=== PATIENT | male | born 1950 | race Caucasian/White ===

== ENCOUNTER → 2018-01-10 | Outpatient (CLI) | payer OTHER ==
[2018-01-10 18:59] LABS: PSA SCREENING 3.41 NG/ML (< 4.0)
[2018-01-10 19:06] LABS: APPEARANCE, URINE CLEAR (CLEAR); BACTERIA, URINE AUTO NEGATIVE (NEGATIVE); BILIRUBIN, URINE AUTO NEGATIVE (NEGATIVE); BLOOD, URINE BLOOD 3+ (NEGATIVE); COLOR, URINE YELLOW (YELLOW); GLUCOSE, URINE (UA) AUTO 1+ mg/dL (NEGATIVE); KETONE, URINE AUTO NEGATIVE (NEGATIVE); LEUKOCYTE ESTERASE, URINE AUTO TRACE (NEGATIVE); MUCUS, URINE SMALL (NEGATIVE); NITRITE, URINE AUTO NEGATIVE (NEGATIVE); PROTEIN, URINE AUTO NEGATIVE (NEGATIVE); RBC, URINE AUTO 57 /HPF (0-3); SPECIFIC GRAVITY URINE AUTO 1.019 (1.002-1.035); SQUAMOUS EPITHELIAL CELL UR AU 0 /HPF (0-6); UROBILINOGEN, URINE AUTO 0.2 mg/dL (0.0-2.0); WBC, URINE AUTO 31 /HPF (0-3)
== END ==
LOC: M SMT 14:57
DX: Z12.5 Encounter for screening for malignant neoplasm of prostate (principal); R35.0 Frequency of micturition
CPT/HCPCS: G0103

== ENCOUNTER → 2018-02-10 | Outpatient (REF) | payer OTHER | LOC: M SMT 16:56 | DX: N39.0 Urinary tract infection, site not specified (principal) | CPT/HCPCS: 87086 ==

== ENCOUNTER → 2018-02-16 | Outpatient (CLI) | payer OTHER | LOC: M RAD 15:45 | DX: N40.1 Benign prostatic hyperplasia with lower urinary tract symptoms (principal) | CPT/HCPCS: 76857 ==

== ENCOUNTER → 2018-05-02 | Outpatient (CLI) | payer OTHER ==
[~2018-05-02] MED LIST: CAND16TA2 PO; CIPR500T3 PO; FINA5TAB2 PO; FLAG500T PO; LEVO50TA5 PO; METF500T4 PO; PERC5TAB12 PO; TAMS0.4C2 PO; VYTO10TA22 PO; ZOFR4TAB16 PO
--- NOTE | 2018-05-08 14:29 | DEXA ---
AP SPINE L1 - L4 1.241 0.4 0.6 LT FEMUR TOTAL 1.095 0.7 0.6 LT NECK 1.017 -0.2 0.8 RT FEMUR TOTAL 1.090 0.7 0.6 RT NECK 1.025 -0.1 0.9 TOTAL BODY TOTAL OTHER COMMENTS: Normal bone densitometry of the spine and hips. FOLLOW-UP: Recommendation for the next bone density exam: 5 years. SALONI
== END ==
LOC: M WHC 14:52
PROVIDERS: ATTEND Nurse Practitioner
DX: M85.812 Other specified disorders of bone density and structure, left shoulder (principal)

== ENCOUNTER 2019-03-11 10:31 | Emergency (ER) | payer MEDICARE, OTHER ==
[~2019-03-11] VITALS: Ht 182.9 cm; Wt 83.6 kg
[~2019-03-11 10:31] MED LIST changes: +METF-791 PO; -METF500T4 PO
[2019-03-11] MEDS ORDERED: ASPI81TA85 PO (11:14)
[2019-03-11] MEDS ORDERED: PROTPAK PO (11:14)
[2019-03-11] MEDS ORDERED: [UNRECOGNIZED DRUG - CODE] PO (11:14)
[2019-03-11 12:51] LABS: BASO % 0.2 % (0.0-1.0); EOS % 0.1 % (0.0-3.0); HEMATOCRIT 43.7 % (42.0-52.0); HEMOGLOBIN 14.4 g/dl (13.5-17.5); LYMPH # 1.2 10^3/uL (1.5-5.0); LYMPH % 9.7 % (24.0-44.0); MEAN CORPUSCULAR VOLUME 97.1 fl (80.0-96.0); MONO # 0.8 10^3/uL (0.0-0.8); MONO % 7.1 % (0.0-5.0); NEUTROPHILS # 9.8 10^3/uL (1.5-8.5); NEUTROPHILS % 82.3 % (36.0-66.0); PLATELET COUNT, AUTOMATED 233 10^3/uL (150-450); WHITE BLOOD COUNT 11.9 10^3/uL (4.0-10.0)
[2019-03-11 13:22] LABS: ALBUMIN 3.6 GM/DL (3.2-5.2); ALT/SGPT 27 U/L (12-78); BILIRUBIN,DIRECT 0.2 MG/DL (0.0-0.2); BILIRUBIN,TOTAL 0.7 MG/DL (0.2-1.0); BLOOD UREA NITROGEN 15 MG/DL (7-18); CALCIUM LEVEL 9.2 MG/DL (8.8-10.2); CARBON DIOXIDE LEVEL 27 MEQ/L (21-32); CHLORIDE LEVEL 108 MEQ/L (98-107); CREATININE FOR GFR 1.19 MG/DL (0.70-1.30); GLOMERULAR FILTRATION RATE > 60.0 (>42); GLUCOSE, FASTING 101 MG/DL (70-100); LIPASE 65 U/L (73-393); POTASSIUM SERUM 3.6 MEQ/L (3.5-5.1); SODIUM LEVEL 141 MEQ/L (136-145); TOTAL PROTEIN 6.9 GM/DL (6.4-8.2)
[2019-03-11 13:48] VITALS: BP 149/88
--- NOTE | 2019-03-12 06:35 | REP ---
CT abdomen and pelvis without IV or oral contrast: History: Right flank pain. Urinary retention. Comparison CT study is from April 05, 2015. CT findings: Preliminary digital senior web architect radiograph demonstrates a normal bowel gas pattern. There are clips in the gallbladder fossa. A small accessory splenule is seen. No focal hepatic or splenic lesion is seen. The lung bases are clear on axial CT images. No adrenal lesion is observed. A normal retrocecal appendix is seen. Small and large intestinal bowel loops are normal in the upper abdomen. There is left colonic diverticulosis without CT evidence of diverticulitis. A Miles catheter is noted in place in the urinary bladder. Urinary bladder is empty, collapsed around a Miles catheter. The prostate gland is markedly enlarged. There is postoperative changes in the right inguinal soft tissues post herniorrhaphy. There is mild hydronephrosis and hydroureter on the left. No ureteral calculus or ureteral mass lesion is observed. No hydronephrosis is seen on the right. No intrarenal calculus is seen on either side. Impression: Marked enlargement of the prostate. Miles catheter in place. Post cholecystectomy. Mild left-sided hydronephrosis and hydroureter without observable stone or other obstructive lesion. Left colonic diverticulosis without CT evidence of diverticulitis. Normal appendix seen. Electronically Signed by Rao Borja MD 03/12/2019 08:34 A
== END 2019-03-11 13:55 | disposition home or self-care (01) ==
LOC: M ED 10:31
DX: R33.9 Retention of urine, unspecified (principal); N40.1 Benign prostatic hyperplasia with lower urinary tract symptoms; K57.90 Diverticulosis of intestine, part unspecified, without perforation or abscess without bleeding; E11.9 Type 2 diabetes mellitus without complications; I10 Essential (primary) hypertension; E03.9 Hypothyroidism, unspecified; E78.5 Hyperlipidemia, unspecified; K21.9 Gastro-esophageal reflux disease without esophagitis; Z79.899 Other long term (current) drug therapy; Z79.82 Long term (current) use of aspirin; Z79.890 Hormone replacement therapy; Z79.84 Long term (current) use of oral hypoglycemic drugs

== ENCOUNTER 2019-03-22 06:45 | Emergency (ER) | payer OTHER ==
[~2019-03-22] VITALS: Ht 175.3 cm; Wt 80.9 kg
[~2019-03-22 06:45] MED LIST changes: +ASPI81TA85 PO; +PROTPAK PO; +[UNRECOGNIZED DRUG - CODE] PO
[2019-03-22] MEDS ORDERED: CIPR500T3 (06:54)
[2019-03-22] MEDS ORDERED: LIDOCAINE 2% 5ML JELLY UROJET TOP ONE (07:00)
[2019-03-22 07:46] LABS: BILIRUBIN, URINE MANUAL NEGATIVE (NEGATIVE); GLUCOSE, URINE (UA) MANUAL 2+(250 MG/DL) mg/dL (NEGATIVE); KETONE, URINE MANUAL NEGATIVE (NEGATIVE); UROBILINOGEN, URINE MANUAL NORMAL (NORMAL)
[2019-03-22 07:58] LABS: BACTERIA, URINE SMALL AMOUNT; MUCUS, URINE SMALL AMOUNT (NEGATIVE); RED BLOOD CELL CAST, URINE 0-1 /lpf; TRANSITIONAL EPI CELLS, URINE SMALL AMOUNT /hpf
[2019-03-22 08:23] VITALS: BP 137/81
== END 2019-03-22 08:45 | disposition home or self-care (01) ==
LOC: M ED 06:45
DX: R33.9 Retention of urine, unspecified (principal); E11.9 Type 2 diabetes mellitus without complications; K21.9 Gastro-esophageal reflux disease without esophagitis; Z79.899 Other long term (current) drug therapy; Z79.890 Hormone replacement therapy; Z79.84 Long term (current) use of oral hypoglycemic drugs

== ENCOUNTER 2019-03-27 22:15 | Emergency (ER) | payer OTHER ==
[~2019-03-27] VITALS: Ht 175.3 cm; Wt 80.9 kg
[2019-03-28 00:36] VITALS: BP 138/78
[2019-03-28 00:58] LABS: APPEARANCE, URINE CLOUDY (CLEAR); BACTERIA, URINE AUTO 2+ (NEGATIVE); BILIRUBIN, URINE AUTO NEGATIVE (NEGATIVE); BLOOD, URINE BLOOD 2+ (NEGATIVE); COLOR, URINE YELLOW (YELLOW); GLUCOSE, URINE (UA) AUTO NEGATIVE (NEGATIVE); KETONE, URINE AUTO NEGATIVE (NEGATIVE); LEUKOCYTE ESTERASE, URINE AUTO 3+ (NEGATIVE); NITRITE, URINE AUTO POSITIVE (NEGATIVE); PROTEIN, URINE AUTO NEGATIVE (NEGATIVE); RBC, URINE AUTO 23 /HPF (0-3); SPECIFIC GRAVITY URINE AUTO 1.016 (1.002-1.035); SQUAMOUS EPITHELIAL CELL UR AU 0 /HPF (0-6); UROBILINOGEN, URINE AUTO 0.2 mg/dL (0.0-2.0); WBC, URINE AUTO 144 /HPF (0-3)
== END 2019-03-28 00:37 | disposition home or self-care (01) ==
LOC: M ED 22:15
DX: T83.091A Other mechanical complication of indwelling urethral catheter, initial encounter (principal); Z79.84 Long term (current) use of oral hypoglycemic drugs; Z79.899 Other long term (current) drug therapy

== ENCOUNTER → 2019-03-27 | Outpatient (CLI) | payer OTHER ==
[~2019-03-27] MED LIST changes: +CIPR500T3
== END ==
LOC: M PLALAB 15:35
PROVIDERS: ATTEND Nurse Practitioner Women's Health
DX: Z12.5 Encounter for screening for malignant neoplasm of prostate (principal)
CPT/HCPCS: 36415; G0103

== ENCOUNTER 2019-04-25 17:13 | Emergency (ER) | payer OTHER ==
[~2019-04-25] VITALS: Ht 182.9 cm; Wt 81.0 kg
[2019-04-25 18:23] VITALS: BP 146/99
[2019-05-07] MEDS ORDERED: SYNT75TA PO (08:08)
[2019-05-07] MEDS ORDERED: PANT40TA3 PO (08:08)
[2019-05-07] MEDS ORDERED: LISI20TA19 PO (08:08)
[2019-05-07] MEDS ORDERED: FLOM0.4C39 PO (08:08)
[2019-05-07] MEDS ORDERED: SIMV40TA20 PO (08:08)
[2019-05-07] MEDS ORDERED: SULF1TAB93 PO (08:58)
[2019-05-07] MEDS ORDERED: EZET1TAB4 PO (08:58)
[2019-05-07] MEDS ORDERED: CAND16TA2 PO (08:58)
== END 2019-04-25 18:40 | disposition home or self-care (01) ==
LOC: M ED 17:13
DX: Z46.6 Encounter for fitting and adjustment of urinary device (principal); T83.038A Leakage of other urinary catheter, initial encounter; T83.021A Displacement of indwelling urethral catheter, initial encounter; Y73.2 Prosthetic and other implants, materials and accessory gastroenterology and urology devices associated with adverse incidents; Z79.84 Long term (current) use of oral hypoglycemic drugs; Z79.899 Other long term (current) drug therapy

== ENCOUNTER → 2019-05-02 | Outpatient (REF) | payer OTHER ==
[~2019-05-02] MED LIST changes: +EZET1TAB4 PO; +FLOM0.4C39 PO; +LISI20TA19 PO; +PANT40TA3 PO; +SIMV40TA20 PO; +SULF1TAB93 PO; +SYNT75TA PO
== END ==
LOC: M SMT 13:12
PROVIDERS: ATTEND Urology
DX: N40.1 Benign prostatic hyperplasia with lower urinary tract symptoms (principal); N28.89 Other specified disorders of kidney and ureter

== ENCOUNTER 2019-05-06 14:35 | Emergency (ER) | payer OTHER ==
[~2019-05-06] VITALS: Ht 182.9 cm; Wt 80.0 kg
[~2019-05-06 14:35] MED LIST changes: -EZET1TAB4 PO; -FLOM0.4C39 PO; -LISI20TA19 PO; -PANT40TA3 PO; -SIMV40TA20 PO; -SULF1TAB93 PO; -SYNT75TA PO
[2019-05-06] MEDS ORDERED: LIDOCAINE 2% 5ML JELLY UROJET TOP ONE (16:00)
[2019-05-06 16:44] VITALS: BP 121/67
[2019-05-07] MEDS ORDERED: PANT40TA3 PO (08:08)
[2019-05-07] MEDS ORDERED: SIMV40TA20 PO (08:08)
[2019-05-07] MEDS ORDERED: SYNT75TA PO (08:08)
[2019-05-07] MEDS ORDERED: FLOM0.4C39 PO (08:08)
[2019-05-07] MEDS ORDERED: LISI20TA19 PO (08:08)
[2019-05-07] MEDS ORDERED: EZET1TAB4 PO (08:58)
[2019-05-07] MEDS ORDERED: SULF1TAB93 PO (08:58)
[2019-05-07] MEDS ORDERED: CAND16TA2 PO (08:58)
== END 2019-05-06 16:59 | disposition home or self-care (01) ==
LOC: M ED 14:35
DX: T83.091A Other mechanical complication of indwelling urethral catheter, initial encounter (principal); E11.9 Type 2 diabetes mellitus without complications; I10 Essential (primary) hypertension; N40.1 Benign prostatic hyperplasia with lower urinary tract symptoms; E78.5 Hyperlipidemia, unspecified; E03.9 Hypothyroidism, unspecified; Z79.84 Long term (current) use of oral hypoglycemic drugs; Z79.811 Long term (current) use of aromatase inhibitors; Z79.899 Other long term (current) drug therapy

== ENCOUNTER → 2019-05-17 | Outpatient (REF) | payer OTHER ==
[~2019-05-17] MED LIST changes: +EZET1TAB4 PO; +FLOM0.4C39 PO; +LISI20TA19 PO; +OXYB5TAB10 PO; +PANT40TA3 PO; +SIMV40TA20 PO; +SULF1TAB93 PO; +SYNT75TA PO
[2019-05-17 13:54] LABS: APPEARANCE, URINE CLOUDY (CLEAR); BACTERIA, URINE AUTO NEGATIVE (NEGATIVE); BILIRUBIN, URINE AUTO NEGATIVE (NEGATIVE); BLOOD, URINE BLOOD 3+ (NEGATIVE); COLOR, URINE YELLOW (YELLOW); GLUCOSE, URINE (UA) AUTO NEGATIVE (NEGATIVE); KETONE, URINE AUTO NEGATIVE (NEGATIVE); LEUKOCYTE ESTERASE, URINE AUTO TRACE (NEGATIVE); MUCUS, URINE SMALL (NEGATIVE); NITRITE, URINE AUTO NEGATIVE (NEGATIVE); PROTEIN, URINE AUTO 1+ mg/dL (NEGATIVE); RBC, URINE AUTO TNTC /HPF (0-3); SPECIFIC GRAVITY URINE AUTO 1.019 (1.002-1.035); SQUAMOUS EPITHELIAL CELL UR AU 0 /HPF (0-6); UROBILINOGEN, URINE AUTO 0.2 mg/dL (0.0-2.0); WBC, URINE AUTO 1 /HPF (0-3)
== END ==
LOC: M SMT 13:22
PROVIDERS: ATTEND Urology
DX: N40.1 Benign prostatic hyperplasia with lower urinary tract symptoms (principal); N39.0 Urinary tract infection, site not specified

== ENCOUNTER 2019-05-25 11:04 | Day surgery (SDC) | payer OTHER ==
[~2019-05-25] VITALS: Ht 182.9 cm; Wt 77.9 kg
[~2019-05-25 11:04] MED LIST changes: +LIDOCAINE 2% INJ 100 MG/5 ML SDV (FOR ANES.) As Ordered ONE; +MIDAZOLAM INJ 2 MG/2 ML VIAL (J2250) As Ordered ONE; +ONDANSETRON 4MG/2ML VIAL (J2405) As Ordered ONE; -OXYB5TAB10 PO; +ceFAZolin SOD 2 GM in IV 1 EA IV ONE; +dexameTHASONE 4 MG/ML 1ML VIAL (J1100) As Ordered ONE; +fentaNYL 100 MCG/2 ML INJECTION (J3010) As Ordered ONE; +propofoL 200 MG/20 ML VIAL As Ordered ONE
[2019-05-25] MEDS ORDERED: D5W/0.45% SODIUM CHLORIDE 1,000 ML IV SCH (12:30)
[2019-05-25] MEDS ORDERED: PHENYLephrine HCL 500 MCG/5 ML (100MCG/ML) SYRINGE (J2370) As Ordered ONE (14:18)
[2019-05-25] MEDS ORDERED: ePHEDrine SULFATE 25 MG/5 ML(5MG/ML) SYRINGE As Ordered ONE (14:18)
[2019-05-25] MEDS ORDERED: GLYCOPYRROLATE INJ 0.2 MG/ML 2 ML VIAL As Ordered ONE (14:18)
[2019-05-25] MEDS ORDERED: PHENYLEPHRINE INJ 10MG/ML VIAL (J2370) As Ordered ONE (14:35)
[2019-05-25] MEDS ORDERED: fentaNYL 100 MCG/2 ML INJECTION (J3010) As Ordered ONE ×2 (15:03→16:27)
[2019-05-25] MEDS ORDERED: FUROSEMIDE 100 MG/10 ML VIAL (J1940) As Ordered ONE (16:51)
[2019-05-25] MEDS ORDERED: PERCOCET 5MG/325MG TAB PO PRN (18:15)
[2019-05-25] MEDS ORDERED: fentaNYL 100 MCG/2 ML INJECTION (J3010) IV PRN (18:15)
[2019-05-25] MEDS ORDERED: ACETAMINOPHEN TAB 650MG DOSE (2X325MG) PO PRN (18:15)
[2019-05-25] MEDS ORDERED: METOCLOPRAMIDE INJ 10MG/2ML VIAL (J2765) IV PRN (18:15)
[2019-05-25] MEDS ORDERED: ONDANSETRON 4MG/2ML VIAL (J2405) IV PRN (18:15)
[2019-05-25] MEDS ORDERED: OXYB5TAB10 PO (21:45)
[2019-05-25] MEDS ORDERED: oxyBUTYnin 5 MG TAB PO ONE (22:00)
[2019-05-25 22:10] VITALS: BP 138/77
--- NOTE | 2019-05-25 23:03 | RO ---
DATE OF PROCEDURE: 05/25/2019 PREPROCEDURE DIAGNOSIS: Benign prostatic hyperplasia with urinary retention. POSTPROCEDURE DIAGNOSIS: Benign prostatic hyperplasia with urinary retention. PROCEDURE: Cystoscopy, button transurethral electrovaporization of the prostate. SURGEON: Antonio Connell MD COMPUTER NUMERICAL CONTROL OPERATOR: None. ANESTHESIA: General. OPERATIVE INDICATIONS: This is a 68-year-old male with benign prostatic hyperplasia and urinary retention. He was brought to the operating room for the above listed procedure. DESCRIPTION OF PROCEDURE: The patient was brought to the operating room and general anesthesia induced. Prophylactic antibiotics were infused. He was then placed in the dorsal lithotomy position and prepped and draped in the usual sterile fashion. At this point, a button resectoscope was inserted into the urethral meatus using a visual obturator. Of note, the patient had trilobar benign prostatic hyperplasia with a fairly prominent median lobe. At this point, I began vaporizing hyperplastic tissue on the median lobe and then circumferentially at the bladder neck. I then vaporized hyperplastic tissue on both lateral lobes. I kept doing this until there was a clear channel established. Throughout the procedure, I made sure not to vaporize close to the ureteral orifices or distal to the verumontanum. Once satisfied there was a clear channel, hemostasis was obtained using a coagulation current. Once satisfied with hemostasis, the resectoscope was removed, and an 18-[place] Miles catheter was inserted into the bladder. The balloon was filled with 15 mL of sterile water. The catheter was then connected to gravity drainage, and this marked the conclusion of the procedure. The patient was taken out of the dorsal lithotomy position, awakened from anesthesia and transported to the recovery room in stable condition. Estimated blood loss: 25 mL. Complications: None. Specimens: None. PLAN: The patient will followup in the clinic in approximately 1 week for catheter removal and a voiding trial. SALONI
== END 2019-05-25 22:30 | disposition home or self-care (01) ==
LOC: M SDC 11:04
PROVIDERS: ATTEND Urology
DX: N40.1 Benign prostatic hyperplasia with lower urinary tract symptoms (principal); I10 Essential (primary) hypertension; E11.9 Type 2 diabetes mellitus without complications; I25.10 Atherosclerotic heart disease of native coronary artery without angina pectoris; E78.00 Pure hypercholesterolemia, unspecified; K21.9 Gastro-esophageal reflux disease without esophagitis; Z79.84 Long term (current) use of oral hypoglycemic drugs; Z79.899 Other long term (current) drug therapy; R33.8 Other retention of urine
CPT/HCPCS: 52601; J0690; J1100; J1940; J2250; J2370; J2405; J3010

== ENCOUNTER → 2019-06-18 | Outpatient (REF) | payer OTHER ==
[~2019-06-18] MED LIST changes: -LIDOCAINE 2% INJ 100 MG/5 ML SDV (FOR ANES.) As Ordered ONE; -MIDAZOLAM INJ 2 MG/2 ML VIAL (J2250) As Ordered ONE; -ONDANSETRON 4MG/2ML VIAL (J2405) As Ordered ONE; +OXYB5TAB10 PO; -ceFAZolin SOD 2 GM in IV 1 EA IV ONE; -dexameTHASONE 4 MG/ML 1ML VIAL (J1100) As Ordered ONE; -fentaNYL 100 MCG/2 ML INJECTION (J3010) As Ordered ONE; -propofoL 200 MG/20 ML VIAL As Ordered ONE
[2019-06-18 14:17] LABS: APPEARANCE, URINE CLOUDY (CLEAR); BACTERIA, URINE AUTO 1+ (NEGATIVE); BILIRUBIN, URINE AUTO NEGATIVE (NEGATIVE); BLOOD, URINE BLOOD 3+ (NEGATIVE); COLOR, URINE YELLOW (YELLOW); GLUCOSE, URINE (UA) AUTO NEGATIVE (NEGATIVE); KETONE, URINE AUTO NEGATIVE (NEGATIVE); LEUKOCYTE ESTERASE, URINE AUTO 3+ (NEGATIVE); MUCUS, URINE SMALL (NEGATIVE); NITRITE, URINE AUTO NEGATIVE (NEGATIVE); PROTEIN, URINE AUTO 2+ mg/dL (NEGATIVE); RBC, URINE AUTO TNTC /HPF (0-3); SPECIFIC GRAVITY URINE AUTO 1.018 (1.002-1.035); SQUAMOUS EPITHELIAL CELL UR AU 0 /HPF (0-6); UROBILINOGEN, URINE AUTO 0.2 mg/dL (0.0-2.0); WBC, URINE AUTO 179 /HPF (0-3)
== END ==
LOC: M SMT 13:16
PROVIDERS: ATTEND Nurse Practitioner Women's Health
DX: R30.0 Dysuria (principal)

== ENCOUNTER 2020-03-24 15:12 | Emergency (ER) | payer OTHER ==
[~2020-03-24] VITALS: Ht 180.3 cm; Wt 82.2 kg
[~2020-03-24 15:12] MED LIST changes: -ASPI81TA85 PO; +ASPI81TA86 PO; -LISI20TA19 PO; +LISI20TA35 PO; -METF-791 PO; +METF-838 PO; +PANT40TA29 PO; -PANT40TA3 PO
[2020-03-24 17:14] LABS: BASO % 0.5 % (0.0-1.0); EOS # 0.1 10^3/uL (0.0-0.5); EOS % 1.6 % (0.0-3.0); HEMATOCRIT 47.8 % (42.0-52.0); HEMOGLOBIN 15.8 g/dl (13.5-17.5); LYMPH # 2.1 10^3/uL (1.5-5.0); LYMPH % 27.2 % (24.0-44.0); MEAN CORPUSCULAR HEMOGLOBIN 31.9 pg (27.0-33.0); MEAN CORPUSCULAR HGB CONC 33.1 g/dl (32.0-36.5); MEAN CORPUSCULAR VOLUME 96.4 fl (80.0-96.0); MONO # 0.8 10^3/uL (0.0-0.8); MONO % 10.2 % (0.0-5.0); NEUTROPHILS # 4.6 10^3/uL (1.5-8.5); NEUTROPHILS % 60.1 % (36.0-66.0); PLATELET COUNT, AUTOMATED 252 10^3/uL (150-450); RED BLOOD COUNT 4.96 10^6/uL (4.30-6.10); WHITE BLOOD COUNT 7.6 10^3/uL (4.0-10.0)
[2020-03-24 17:25] LABS: INR 0.96
[2020-03-24 17:45] LABS: ALBUMIN 3.8 GM/DL (3.2-5.2); ALT/SGPT 26 U/L (12-78); BILIRUBIN,TOTAL 0.4 MG/DL (0.2-1.0); BLOOD UREA NITROGEN 19 MG/DL (7-18); CALCIUM LEVEL 9.5 MG/DL (8.8-10.2); CARBON DIOXIDE LEVEL 27 MEQ/L (21-32); CHLORIDE LEVEL 107 MEQ/L (98-107); CREATININE FOR GFR 1.22 MG/DL (0.70-1.30); GLOMERULAR FILTRATION RATE > 60.0 (>42); GLUCOSE, FASTING 126 MG/DL (70-100); POTASSIUM SERUM 3.7 MEQ/L (3.5-5.1); SODIUM LEVEL 140 MEQ/L (136-145); TOTAL PROTEIN 6.9 GM/DL (6.4-8.2)
[2020-03-24 18:42] VITALS: BP 122/74
== END 2020-03-24 18:54 | disposition home or self-care (01) ==
LOC: M ED 15:12
DX: K92.2 Gastrointestinal hemorrhage, unspecified (principal); R05 Cough; E11.9 Type 2 diabetes mellitus without complications; I10 Essential (primary) hypertension; K21.9 Gastro-esophageal reflux disease without esophagitis; N40.0 Benign prostatic hyperplasia without lower urinary tract symptoms; N39.0 Urinary tract infection, site not specified; E03.9 Hypothyroidism, unspecified; R51.9 Headache, unspecified; R07.9 Chest pain, unspecified; M54.9 Dorsalgia, unspecified; K57.32 Diverticulitis of large intestine without perforation or abscess without bleeding; F43.10 Post-traumatic stress disorder, unspecified; Z79.899 Other long term (current) drug therapy

== ENCOUNTER 2022-06-09 04:22 | Inpatient (IN) | payer MEDICARE, OTHER ==
[~2022-06-09] VITALS: Ht 175.3 cm; Wt 74.2 kg
[~2022-06-09 04:22] MED LIST changes: +BACTDSTA PO; +EZET-18 PO; -EZET1TAB4 PO; +EZET1TAB96 PO; -SULF1TAB93 PO; -VYTO10TA22 PO
[2022-06-09] MEDS ORDERED: ATOR40TA75 PO (04:34)
[2022-06-09] MEDS ORDERED: ONDANSETRON 4MG 2ML VIAL IV ONE (05:10)
[2022-06-09] MEDS ORDERED: NS 1,000 ML IV ONE ×2 (05:10→09:20)
[2022-06-09 05:43] LABS: BASO # 0.1 10^3/uL (0.0-0.2); BASO % 0.5 % (0.0-1.0); EOS # 0.1 10^3/uL (0.0-0.5); EOS % 1.2 % (0.0-3.0); HEMATOCRIT 44.7 % (42.0-52.0); HEMOGLOBIN 15.2 g/dl (13.5-17.5); LYMPH # 1.7 10^3/uL (1.5-5.0); LYMPH % 15.9 % (24.0-44.0); MEAN CORPUSCULAR HEMOGLOBIN 32.8 pg (27.0-33.0); MEAN CORPUSCULAR VOLUME 96.3 fl (80.0-96.0); MONO # 0.8 10^3/uL (0.0-0.8); MONO % 7.1 % (2.0-8.0); NEUTROPHILS % 74.6 % (36.0-66.0); PLATELET COUNT, AUTOMATED 263 10^3/uL (150-450); RED BLOOD COUNT 4.64 10^6/uL (4.30-6.10); WHITE BLOOD COUNT 10.8 10^3/uL (4.0-10.0)
[2022-06-09] MEDS ORDERED: ATOR80TA59 PO (05:44)
[2022-06-09] MEDS ORDERED: SPIR-10 PO (05:44)
[2022-06-09] MEDS ORDERED: METO1TAB87 PO (05:44)
[2022-06-09] MEDS ORDERED: ASPI1CHW3 PO (05:44)
[2022-06-09] MEDS ORDERED: LEVO88TA3 PO (05:44)
[2022-06-09] MEDS ORDERED: CLOP75TA2 PO (05:44)
[2022-06-09] MEDS ORDERED: METF-877 PO (05:44)
[2022-06-09] MEDS ORDERED: FARX1TAB3 PO (05:44)
[2022-06-09 05:53] LABS: PROTHROMBIN TIME 13.4 SECONDS (12.5-14.5)
[2022-06-09 05:54] LABS: PARTIAL THROMBOPLASTIN TIME 27.8 SECONDS (24.8-34.2)
[2022-06-09 06:12] LABS: ALBUMIN 3.7 G/DL (3.2-5.2); BILIRUBIN,TOTAL 0.8 MG/DL (0.3-1.2); CALCIUM LEVEL 9.5 MG/DL (8.3-10.6); CREATININE FOR GFR 1.33 MG/DL (0.70-1.30); GLOMERULAR FILTRATION RATE 56.1 (>42); MAGNESIUM LEVEL 1.8 MG/DL (1.8-2.4); POTASSIUM SERUM 4.1 MMOL/L (3.5-5.1); THYROID STIMULATING HORMONE 5.971 uIU/ML (0.55-4.78); TOTAL PROTEIN 6.9 G/DL (5.7-8.2)
[2022-06-09 06:14] LABS: RSV AMPLIFICATION NEGATIVE (NEGATIVE)
[2022-06-09 06:18] LABS: MB/CK RELATIVE INDEX 2.2 (< OR =4)
[2022-06-09] MEDS ORDERED: ISOVUE-370 76% 100ML VIAL As Ordered ONE (07:11)
[2022-06-09 08:25] LABS: CK-MB VALUE MASS 1.7 NG/ML (<3.6); MB/CK RELATIVE INDEX 1.39 (< OR =4)
[2022-06-09] MEDS ORDERED: ASPIRIN 81MG CHEW TABLET PO SCH (09:00)
[2022-06-09] MEDS ORDERED: CLOPIDOGREL 75 MG TAB PO SCH (09:00)
[2022-06-09] MEDS ORDERED: CEFDINIR 300 MG CAP (OMNICEF) PO SCH (09:00)
[2022-06-09] MEDS ORDERED: ACETAMINOPHEN TAB 650MG DOSE (2X325MG) PO ONE (09:45)
[2022-06-09] MEDS ORDERED: CEFD300C41 PO (11:56)
[2022-06-09] MEDS ORDERED: METO1TAB32 PO (11:56)
[2022-06-09] MEDS ORDERED: FLON1SPR NARES (12:02)
[2022-06-09] MEDS ORDERED: XIID5DRO OU (12:02)
[2022-06-09] MEDS ORDERED: LISI5TAB11 PO (12:04)
[2022-06-09] MEDS ORDERED: HOME MED LIST COMPLETE! XX SCH (12:15)
[2022-06-09] MEDS ORDERED: GLUCAGON INJ 1MG VIAL SC PRN (12:40)
[2022-06-09] MEDS ORDERED: DEXTROSE 50% 50ML SYRINGE IV PRN (12:40)
[2022-06-09] MEDS ORDERED: FLUTICASONE PROP 0.05% NASAL SPRAY 16 GM (FLONASE) NARES PRN (12:40)
[2022-06-09] MEDS ORDERED: GLUCOSE 4GM CHEW TABLET PO PRN (12:40)
[2022-06-09] MEDS ORDERED: CLOPIDOGREL 75 MG TAB PO ONE (15:05)
[2022-06-09] MEDS ORDERED: ASPIRIN 81MG ENTERIC TABLET PO ONE (15:05)
[2022-06-09 16:00] VITALS: BP 176/96
[2022-06-09] MEDS: SPIRONOLACTONE 12.5MG PER 1/2 TABLET PO SCH (16:29)
[2022-06-09] MEDS: CEFDINIR 300 MG CAP (OMNICEF) PO SCH (16:29)
[2022-06-09] MEDS: PANTOPRAZOLE 40MG TAB (PROTONIX) PO SCH (16:29)
[2022-06-09] MEDS: INSULIN LISPRO (NovoLOG) PER UNIT SC SCH (16:39)
[2022-06-09] MEDS ORDERED: METOPROLOL TART 25 MG TABLET PO ONE (16:40)
[2022-06-09] MEDS: METOPROLOL SUCC *XL* 25MG TAB (TopROL *XL*) PO SCH (16:44)
[2022-06-09] MEDS ORDERED: ACETAMINOPHEN 500 MG TAB PO ONE (16:45)
[2022-06-09] MEDS: lisinopriL 5 MG TAB PO SCH (16:45)
[2022-06-09 18:07] LABS: HEMATOCRIT 41.3 % (42.0-52.0); HEMOGLOBIN 13.8 g/dl (13.5-17.5)
[2022-06-09] MEDS: DAPAGLIFLOZIN PROPANEDIOL 10MG TABLET (FARXIGA) PO SCH (18:35)
[2022-06-09] MEDS: NITROGLYCERIN 2% OINT 1 GM *U/D* PKT TOP SCH ×2 (18:36→23:02)
[2022-06-09 18:47] VITALS: BP 146/88
[2022-06-09 20:00] VITALS: BP 130/78
[2022-06-09] MEDS ORDERED: ATORVASTATIN 20 MG TAB PO SCH (21:00)
[2022-06-09] MEDS ORDERED: INSULIN LISPRO (NovoLOG) PER UNIT SC SCH (21:00)
[2022-06-10] VITALS: BP 123/75
[2022-06-10 01:02] LABS: HEMATOCRIT 39.4 % (42.0-52.0); HEMOGLOBIN 13.2 g/dl (13.5-17.5)
[2022-06-10] MEDS ORDERED: ACETAMINOPHEN TAB 650MG DOSE (2X325MG) PO PRN (04:20)
[2022-06-10 05:30] VITALS: BP 140/90
[2022-06-10] MEDS: NITROGLYCERIN 2% OINT 1 GM *U/D* PKT TOP SCH ×2 (05:38→12:00)
[2022-06-10] MEDS ORDERED: KETOROLAC 30 MG/ML 1ML VIAL IV ONE (05:55)
[2022-06-10] MEDS ORDERED: LEVOTHYROXINE 88MCG TABLET (0.088 MG) PO SCH (06:00)
[2022-06-10 06:23] LABS: HEMATOCRIT 41.4 % (42.0-52.0); HEMOGLOBIN 13.9 g/dl (13.5-17.5)
[2022-06-10 06:27] LABS: MEAN CORPUSCULAR HEMOGLOBIN 32.9 pg (27.0-33.0); MEAN CORPUSCULAR HGB CONC 33.3 g/dl (32.0-36.5); MEAN CORPUSCULAR VOLUME 98.8 fl (80.0-96.0); PLATELET COUNT, AUTOMATED 233 10^3/uL (150-450); RED BLOOD COUNT 4.25 10^6/uL (4.30-6.10); WHITE BLOOD COUNT 12.8 10^3/uL (4.0-10.0)
[2022-06-10 06:55] LABS: BLOOD UREA NITROGEN 22 MG/DL (9-23); CALCIUM LEVEL 9.2 MG/DL (8.3-10.6); CARBON DIOXIDE LEVEL 20 MMOL/L (20-31); CHLORIDE LEVEL 107 MMOL/L (98-107); CREATININE FOR GFR 1.05 MG/DL (0.70-1.30); GLOMERULAR FILTRATION RATE > 60.0 (>42); GLUCOSE, FASTING 91 MG/DL (74-106); POTASSIUM SERUM 4.1 MMOL/L (3.5-5.1); SODIUM LEVEL 137 MMOL/L (136-145)
[2022-06-10] MEDS: INSULIN LISPRO (NovoLOG) PER UNIT SC SCH ×2 (07:30→12:00)
[2022-06-10] MEDS ORDERED: CIPRODEX OTIC SUSP 7.5ML AD SCH (09:00)
[2022-06-10] MEDS ORDERED: E-Z-HD 98% w/w 340GM SUSP BTL As Ordered ONE (09:25)
[2022-06-10] MEDS ORDERED: E-Z-PAQUE 96% w/w SUSP 176GM BTL As Ordered ONE (09:25)
[2022-06-10] MEDS ORDERED: E-Z-GAS II EFFERVESCENT PACKET (SODIUM BICARB./CITRIC ACID/SIMETHICONE) As Ordered ONE (09:25)
[2022-06-10 11:00] VITALS: BP 146/83
[2022-06-10] MEDS: SPIRONOLACTONE 12.5MG PER 1/2 TABLET PO SCH (11:26)
[2022-06-10] MEDS: CEFDINIR 300 MG CAP (OMNICEF) PO SCH (11:26)
[2022-06-10] MEDS: lisinopriL 5 MG TAB PO SCH (11:28)
[2022-06-10] MEDS: PANTOPRAZOLE 40MG TAB (PROTONIX) PO SCH (11:28)
[2022-06-10] MEDS: METOPROLOL SUCC *XL* 25MG TAB (TopROL *XL*) PO SCH (11:29)
[2022-06-10] MEDS: DAPAGLIFLOZIN PROPANEDIOL 10MG TABLET (FARXIGA) PO SCH (11:30)
[2022-06-10 12:00] VITALS: BP 132/81
[2022-06-10 14:00] VITALS: BP 166/90
== END 2022-06-10 15:16 | disposition home or self-care (01) | DRG 696 ==
LOC: M ED 04:22 → M ED INP 12:36 → ENRESERV 15:13 → M MSPAV 16:17
PROVIDERS: ADMIT General Practice; ATTEND General Practice
DX: R31.0 Gross hematuria (principal); E87.20 Acidosis, unspecified; J98.11 Atelectasis; J91.8 Pleural effusion in other conditions classified elsewhere; N18.30 Chronic kidney disease, stage 3 unspecified; I12.9 Hypertensive chronic kidney disease with stage 1 through stage 4 chronic kidney disease, or unspecified chronic kidney disease; E11.22 Type 2 diabetes mellitus with diabetic chronic kidney disease; I25.2 Old myocardial infarction; N40.0 Benign prostatic hyperplasia without lower urinary tract symptoms; K44.9 Diaphragmatic hernia without obstruction or gangrene; E03.9 Hypothyroidism, unspecified; N28.1 Cyst of kidney, acquired; K57.30 Diverticulosis of large intestine without perforation or abscess without bleeding; M16.11 Unilateral primary osteoarthritis, right hip; K40.90 Unilateral inguinal hernia, without obstruction or gangrene, not specified as recurrent; Z87.891 Personal history of nicotine dependence; K21.9 Gastro-esophageal reflux disease without esophagitis; E78.5 Hyperlipidemia, unspecified; I25.10 Atherosclerotic heart disease of native coronary artery without angina pectoris; Z87.442 Personal history of urinary calculi

== ENCOUNTER 2022-06-13 21:30 | Inpatient (IN) | payer MEDICARE, OTHER ==
[~2022-06-13] VITALS: Ht 175.3 cm; Wt 75.5 kg
[~2022-06-13 21:30] MED LIST changes: +ASPI1CHW3 PO; +ATOR40TA75 PO; +ATOR80TA59 PO; +CEFD300C41 PO; +CLOP75TA2 PO; +FARX1TAB3 PO; +FLON1SPR NARES; +LEVO88TA3 PO; +LISI5TAB11 PO; +METF-877 PO; +METO1TAB32 PO; +METO1TAB87 PO; +SPIR-10 PO; +XIID5DRO OU
[2022-06-13 22:15] LABS: BASO # 0.1 10^3/uL (0.0-0.2); BASO % 0.4 % (0.0-1.0); EOS # 0.1 10^3/uL (0.0-0.5); EOS % 0.4 % (0.0-3.0); HEMATOCRIT 43.6 % (42.0-52.0); HEMOGLOBIN 14.6 g/dl (13.5-17.5); LYMPH # 1.4 10^3/uL (1.5-5.0); LYMPH % 10.6 % (24.0-44.0); MEAN CORPUSCULAR HEMOGLOBIN 32.4 pg (27.0-33.0); MEAN CORPUSCULAR HGB CONC 33.5 g/dl (32.0-36.5); MEAN CORPUSCULAR VOLUME 96.7 fl (80.0-96.0); MONO # 0.9 10^3/uL (0.0-0.8); MONO % 6.6 % (2.0-8.0); NEUTROPHILS % 81.5 % (36.0-66.0); PLATELET COUNT, AUTOMATED 334 10^3/uL (150-450); RED BLOOD COUNT 4.51 10^6/uL (4.30-6.10); WHITE BLOOD COUNT 13.5 10^3/uL (4.0-10.0)
[2022-06-13 23:26] LABS: APPEARANCE, URINE MANUAL TURBID (CLEAR); COLOR, URINE MANUAL RED (YELLOW)
[2022-06-13 23:27] LABS: BILIRUBIN, URINE MANUAL NEGATIVE (NEGATIVE); BLOOD URINE MANUAL POSITIVE (NEGATIVE); GLUCOSE, URINE (UA) MANUAL 4+(1000 MG/DL) mg/dL (NEGATIVE); KETONE, URINE MANUAL NEGATIVE (NEGATIVE); LEUKOCYTE ESTERASE, URINE MAN NEGATIVE (NEGATIVE); NITRITE, URINE MANUAL NEGATIVE (NEGATIVE); PROTEIN, URINE MANUAL 3+ mg/dL (NEGATIVE); UROBILINOGEN, URINE MANUAL NORMAL (NORMAL)
[2022-06-13 23:29] LABS: RBC, URINE TNTC /hpf (0-3)
[2022-06-13 23:30] LABS: BACTERIA, URINE NONE SEEN; HYALINE CAST, URINE NONE SEEN /lpf (0-1); SQUAMOUS EPITHELIAL CELL URINE NONE SEEN /hpf (SMALL AMT)
[2022-06-14] VITALS (8 sets, daily range): BP systolic 109–136; BP diastolic 71–83
[2022-06-14] MEDS ORDERED: UNRESOLVED CLARIFICATION ENTRY XX SCH (00:01)
[2022-06-14] MEDS ORDERED: HOME MED LIST COMPLETE! XX SCH (02:30)
[2022-06-14 02:54] LABS: RSV AMPLIFICATION NEGATIVE (NEGATIVE)
[2022-06-14] MEDS ORDERED: DEXTROSE 50% 50ML SYRINGE IV PRN (03:05)
[2022-06-14] MEDS ORDERED: ACETAMINOPHEN TAB 650MG DOSE (2X325MG) PO PRN (03:05)
[2022-06-14] MEDS ORDERED: FLUTICASONE PROP 0.05% NASAL SPRAY 16 GM (FLONASE) NARES PRN (03:05)
[2022-06-14] MEDS ORDERED: GLUCAGON INJ 1MG VIAL SC PRN (03:05)
[2022-06-14] MEDS ORDERED: GLUCOSE 4GM CHEW TABLET PO PRN (03:05)
[2022-06-14 04:22] LABS: HEMATOCRIT 41.8 % (42.0-52.0); HEMOGLOBIN 13.9 g/dl (13.5-17.5)
[2022-06-14 04:57] LABS: BLOOD UREA NITROGEN 24 MG/DL (9-23); CALCIUM LEVEL 9.9 MG/DL (8.3-10.6); CARBON DIOXIDE LEVEL 21 MMOL/L (20-31); CHLORIDE LEVEL 109 MMOL/L (98-107); CREATININE FOR GFR 1.13 MG/DL (0.70-1.30); GLOMERULAR FILTRATION RATE > 60.0 (>42); GLUCOSE, FASTING 121 MG/DL (74-106); POTASSIUM SERUM 4.1 MMOL/L (3.5-5.1); SODIUM LEVEL 142 MMOL/L (136-145)
[2022-06-14] MEDS: LEVOTHYROXINE 88MCG TABLET (0.088 MG) PO SCH (06:09)
[2022-06-14] MEDS: DOCUSATE SODIUM 100MG CAPSULE PO SCH ×2 (09:00→21:00)
[2022-06-14] MEDS: lisinopriL 5 MG TAB PO SCH (09:00)
[2022-06-14] MEDS: INSULIN LISPRO (NovoLOG) PER UNIT SC SCH ×4 (09:13→21:00)
[2022-06-14] MEDS: CEFDINIR 300 MG CAP (OMNICEF) PO SCH ×2 (09:17→21:28)
[2022-06-14] MEDS: ASPIRIN 81MG CHEW TABLET PO SCH (09:17)
[2022-06-14] MEDS: CLOPIDOGREL 75 MG TAB PO SCH (09:17)
[2022-06-14] MEDS: PANTOPRAZOLE 40MG TAB (PROTONIX) PO SCH (09:17)
[2022-06-14] MEDS: METOPROLOL SUCC *XL* 25MG TAB (TopROL *XL*) PO SCH (09:18)
[2022-06-14 09:33] LABS: HEMATOCRIT 40.7 % (42.0-52.0); HEMOGLOBIN 13.6 g/dl (13.5-17.5)
[2022-06-14 15:27] LABS: HEMATOCRIT 40.2 % (42.0-52.0); HEMOGLOBIN 13.6 g/dl (13.5-17.5)
[2022-06-14] MEDS ORDERED: LR 1,000 ML IV SCH (17:20)
[2022-06-14] MEDS ORDERED: ONDANSETRON 4MG 2ML VIAL IV PRN (17:20)
[2022-06-14] MEDS ORDERED: oxyCODONE 5MG TAB PO PRN (17:20)
[2022-06-14] MEDS ORDERED: MORPHINE 2 MG/ML 1ML VIAL IV PRN (17:20)
[2022-06-14] MEDS ORDERED: fentaNYL 100 MCG/2 ML INJECTION IV PRN (17:20)
[2022-06-14] MEDS ORDERED: propofoL 200 MG/20 ML VIAL As Ordered ONE (17:48)
[2022-06-14] MEDS ORDERED: PHENYLephrine 500MCG 5ML (100MCG/ML) SYRINGE As Ordered ONE (17:48)
[2022-06-14] MEDS ORDERED: ONDANSETRON 4MG 2ML VIAL As Ordered ONE (17:48)
[2022-06-14] MEDS ORDERED: LIDOCAINE 2% 100MG/5ML SDV (FOR ANES.) As Ordered ONE (17:48)
[2022-06-14] MEDS ORDERED: MIDAZOLAM INJ 2MG/2ML VIAL As Ordered ONE (17:48)
[2022-06-14] MEDS ORDERED: fentaNYL 100 MCG/2 ML INJECTION As Ordered ONE (17:48)
[2022-06-14] MEDS ORDERED: ePHEDrine SULFATE 25 MG/5 ML(5MG/ML) SYRINGE As Ordered ONE (17:51)
[2022-06-14 21:07] LABS: HEMATOCRIT 37.9 % (42.0-52.0); HEMOGLOBIN 12.7 g/dl (13.5-17.5)
[2022-06-14] MEDS: ATORVASTATIN 20 MG TAB PO SCH (21:28)
[2022-06-15 00:30] VITALS: BP 115/76
[2022-06-15 04:30] VITALS: BP 119/76
[2022-06-15] MEDS: LEVOTHYROXINE 88MCG TABLET (0.088 MG) PO SCH (05:59)
[2022-06-15 07:08] LABS: BASO % 0.2 % (0.0-1.0); EOS % 0.1 % (0.0-3.0); HEMATOCRIT 36.2 % (42.0-52.0); LYMPH # 1.4 10^3/uL (1.5-5.0); LYMPH % 15.9 % (24.0-44.0); MEAN CORPUSCULAR HEMOGLOBIN 32.8 pg (27.0-33.0); MEAN CORPUSCULAR HGB CONC 33.1 g/dl (32.0-36.5); MEAN CORPUSCULAR VOLUME 98.9 fl (80.0-96.0); MONO # 0.5 10^3/uL (0.0-0.8); MONO % 5.8 % (2.0-8.0); NEUTROPHILS # 6.8 10^3/uL (1.5-8.5); NEUTROPHILS % 77.5 % (36.0-66.0); PLATELET COUNT, AUTOMATED 298 10^3/uL (150-450); RED BLOOD COUNT 3.66 10^6/uL (4.30-6.10); WHITE BLOOD COUNT 8.7 10^3/uL (4.0-10.0)
[2022-06-15 07:55] LABS: BLOOD UREA NITROGEN 30 MG/DL (9-23); CALCIUM LEVEL 9.4 MG/DL (8.3-10.6); CARBON DIOXIDE LEVEL 25 MMOL/L (20-31); CHLORIDE LEVEL 106 MMOL/L (98-107); CREATININE FOR GFR 1.23 MG/DL (0.70-1.30); GLOMERULAR FILTRATION RATE > 60.0 (>42); GLUCOSE, FASTING 129 MG/DL (74-106); POTASSIUM SERUM 4.6 MMOL/L (3.5-5.1); SODIUM LEVEL 140 MMOL/L (136-145)
[2022-06-15] MEDS: lisinopriL 5 MG TAB PO SCH (09:00)
[2022-06-15] MEDS: INSULIN LISPRO (NovoLOG) PER UNIT SC SCH ×4 (09:55→21:00)
[2022-06-15] MEDS: ASPIRIN 81MG CHEW TABLET PO SCH (09:55)
[2022-06-15] MEDS: CEFDINIR 300 MG CAP (OMNICEF) PO SCH ×2 (09:55→20:54)
[2022-06-15] MEDS: PANTOPRAZOLE 40MG TAB (PROTONIX) PO SCH (09:55)
[2022-06-15] MEDS: DOCUSATE SODIUM 100MG CAPSULE PO SCH ×2 (09:55→20:54)
[2022-06-15] MEDS: CLOPIDOGREL 75 MG TAB PO SCH (09:55)
[2022-06-15] MEDS: METOPROLOL SUCC *XL* 25MG TAB (TopROL *XL*) PO SCH (09:56)
[2022-06-15 10:00] VITALS: BP 124/72
[2022-06-15 14:00] VITALS: BP 114/72
[2022-06-15 18:00] VITALS: BP 114/79
[2022-06-15] MEDS: ATORVASTATIN 20 MG TAB PO SCH (20:54)
[2022-06-15 20:58] VITALS: BP 106/56
[2022-06-16 05:40] VITALS: BP 114/68
[2022-06-16] MEDS: LEVOTHYROXINE 88MCG TABLET (0.088 MG) PO SCH (05:41)
[2022-06-16 07:34] LABS: BASO # 0.1 10^3/uL (0.0-0.2); BASO % 0.6 % (0.0-1.0); EOS # 0.2 10^3/uL (0.0-0.5); EOS % 1.9 % (0.0-3.0); HEMATOCRIT 32.7 % (42.0-52.0); LYMPH # 2.2 10^3/uL (1.5-5.0); LYMPH % 22.4 % (24.0-44.0); MEAN CORPUSCULAR HEMOGLOBIN 32.9 pg (27.0-33.0); MEAN CORPUSCULAR HGB CONC 33.6 g/dl (32.0-36.5); MEAN CORPUSCULAR VOLUME 97.9 fl (80.0-96.0); MONO # 0.7 10^3/uL (0.0-0.8); MONO % 7.6 % (2.0-8.0); NEUTROPHILS # 6.4 10^3/uL (1.5-8.5); PLATELET COUNT, AUTOMATED 265 10^3/uL (150-450); RED BLOOD COUNT 3.34 10^6/uL (4.30-6.10); WHITE BLOOD COUNT 9.6 10^3/uL (4.0-10.0)
[2022-06-16 07:54] LABS: BLOOD UREA NITROGEN 31 MG/DL (9-23); CALCIUM LEVEL 9.3 MG/DL (8.3-10.6); CARBON DIOXIDE LEVEL 26 MMOL/L (20-31); CHLORIDE LEVEL 107 MMOL/L (98-107); CREATININE FOR GFR 1.07 MG/DL (0.70-1.30); GLOMERULAR FILTRATION RATE > 60.0 (>42); GLUCOSE, FASTING 124 MG/DL (74-106); POTASSIUM SERUM 3.8 MMOL/L (3.5-5.1); SODIUM LEVEL 141 MMOL/L (136-145)
[2022-06-16] MEDS: ASPIRIN 81MG CHEW TABLET PO SCH (08:59)
[2022-06-16] MEDS: PANTOPRAZOLE 40MG TAB (PROTONIX) PO SCH (08:59)
[2022-06-16] MEDS: DOCUSATE SODIUM 100MG CAPSULE PO SCH ×2 (08:59→20:11)
[2022-06-16] MEDS: CLOPIDOGREL 75 MG TAB PO SCH (08:59)
[2022-06-16] MEDS: CEFDINIR 300 MG CAP (OMNICEF) PO SCH ×2 (08:59→20:11)
[2022-06-16] MEDS: lisinopriL 5 MG TAB PO SCH (09:00)
[2022-06-16] MEDS: INSULIN LISPRO (NovoLOG) PER UNIT SC SCH ×4 (09:00→21:00)
[2022-06-16] MEDS: METOPROLOL SUCC *XL* 25MG TAB (TopROL *XL*) PO SCH (09:03)
[2022-06-16 14:00] VITALS: BP 105/71
[2022-06-16] MEDS: ATORVASTATIN 20 MG TAB PO SCH (20:11)
[2022-06-16 21:35] VITALS: BP 102/61
[2022-06-17] MEDS: LEVOTHYROXINE 88MCG TABLET (0.088 MG) PO SCH (05:28)
[2022-06-17 06:00] VITALS: BP 102/62
[2022-06-17 08:10] LABS: BASO # 0.1 10^3/uL (0.0-0.2); BASO % 0.5 % (0.0-1.0); EOS # 0.2 10^3/uL (0.0-0.5); EOS % 1.8 % (0.0-3.0); HEMATOCRIT 30.9 % (42.0-52.0); HEMOGLOBIN 10.5 g/dl (13.5-17.5); LYMPH # 2.1 10^3/uL (1.5-5.0); LYMPH % 21.5 % (24.0-44.0); MEAN CORPUSCULAR HEMOGLOBIN 33.1 pg (27.0-33.0); MEAN CORPUSCULAR VOLUME 97.5 fl (80.0-96.0); MONO # 0.8 10^3/uL (0.0-0.8); MONO % 8.4 % (2.0-8.0); NEUTROPHILS # 6.6 10^3/uL (1.5-8.5); NEUTROPHILS % 67.1 % (36.0-66.0); PLATELET COUNT, AUTOMATED 265 10^3/uL (150-450); RED BLOOD COUNT 3.17 10^6/uL (4.30-6.10); WHITE BLOOD COUNT 9.8 10^3/uL (4.0-10.0)
[2022-06-17] MEDS: lisinopriL 5 MG TAB PO SCH (08:11)
[2022-06-17] MEDS: PANTOPRAZOLE 40MG TAB (PROTONIX) PO SCH (08:11)
[2022-06-17] MEDS: ASPIRIN 81MG CHEW TABLET PO SCH (08:11)
[2022-06-17] MEDS: CEFDINIR 300 MG CAP (OMNICEF) PO SCH (08:11)
[2022-06-17] MEDS: DOCUSATE SODIUM 100MG CAPSULE PO SCH (08:11)
[2022-06-17 08:12] VITALS: BP 111/62
[2022-06-17] MEDS: CLOPIDOGREL 75 MG TAB PO SCH (08:12)
[2022-06-17] MEDS: METOPROLOL SUCC *XL* 25MG TAB (TopROL *XL*) PO SCH (08:12)
[2022-06-17] MEDS: INSULIN LISPRO (NovoLOG) PER UNIT SC SCH ×2 (08:13→12:33)
[2022-06-17] MEDS ORDERED: SENOKOT S TAB PO SCH (09:00)
[2022-06-17] MEDS ORDERED: MIRALAX *UNIT DOSE* 17GM PACKET PO SCH (09:00)
== END 2022-06-17 13:45 | disposition home or self-care (01) | DRG 813 ==
LOC: M ED 21:30 → EDBD 21:30 → M ED INP 06-14 03:02 → M MSPAV 06-14 08:53
PROVIDERS: ADMIT Family Medicine; ATTEND Internal Medicine
PROC: 0VB08ZX Excision of Prostate, Via Natural or Artificial Opening Endoscopic, Diagnostic (ICD-10-PCS; 2022-06-14)
PROC: 0TCB8ZZ Extirpation of Matter from Bladder, Via Natural or Artificial Opening Endoscopic (ICD-10-PCS; principal; 2022-06-14 17:00)
DX: D68.32 Hemorrhagic disorder due to extrinsic circulating anticoagulants (principal); N39.0 Urinary tract infection, site not specified; D62 Acute posthemorrhagic anemia; R31.0 Gross hematuria; R30.0 Dysuria; I10 Essential (primary) hypertension; K21.9 Gastro-esophageal reflux disease without esophagitis; E03.9 Hypothyroidism, unspecified; I25.10 Atherosclerotic heart disease of native coronary artery without angina pectoris; E78.5 Hyperlipidemia, unspecified; Z95.1 Presence of aortocoronary bypass graft; N40.0 Benign prostatic hyperplasia without lower urinary tract symptoms; E11.9 Type 2 diabetes mellitus without complications; Z79.899 Other long term (current) drug therapy; Z79.82 Long term (current) use of aspirin; Z87.891 Personal history of nicotine dependence; Z95.2 Presence of prosthetic heart valve

== ENCOUNTER 2022-07-14 16:52 | Inpatient (IN) | payer OTHER, MEDICARE ==
[~2022-07-14] VITALS: Ht 175.3 cm; Wt 75.9 kg
[2022-07-14] MEDS ORDERED: LIDOCAINE 2% 5ML JELLY UROJET TOP ONE (17:30)
[2022-07-14 19:07] LABS: BASO % 0.2 % (0.0-1.0); EOS % 0.4 % (0.0-3.0); HEMATOCRIT 30.5 % (42.0-52.0); HEMOGLOBIN 9.7 g/dl (13.5-17.5); LYMPH # 1.5 10^3/uL (1.5-5.0); LYMPH % 16.7 % (24.0-44.0); MEAN CORPUSCULAR HEMOGLOBIN 31.2 pg (27.0-33.0); MEAN CORPUSCULAR HGB CONC 31.8 g/dl (32.0-36.5); MEAN CORPUSCULAR VOLUME 98.1 fl (80.0-96.0); MONO # 0.7 10^3/uL (0.0-0.8); MONO % 7.1 % (2.0-8.0); NEUTROPHILS # 6.8 10^3/uL (1.5-8.5); NEUTROPHILS % 75.1 % (36.0-66.0); PLATELET COUNT, AUTOMATED 322 10^3/uL (150-450); RED BLOOD COUNT 3.11 10^6/uL (4.30-6.10); WHITE BLOOD COUNT 9.1 10^3/uL (4.0-10.0)
[2022-07-14 19:19] LABS: INR 1.1; PROTHROMBIN TIME 14.4 SECONDS (12.5-14.5)
[2022-07-14 19:30] LABS: BLOOD UREA NITROGEN 20 MG/DL (9-23); CALCIUM LEVEL 8.9 MG/DL (8.3-10.6); CARBON DIOXIDE LEVEL 24 MMOL/L (20-31); CHLORIDE LEVEL 106 MMOL/L (98-107); CREATININE FOR GFR 1.12 MG/DL (0.70-1.30); GLOMERULAR FILTRATION RATE > 60.0 (>42); GLUCOSE, FASTING 107 MG/DL (74-106); POTASSIUM SERUM 3.9 MMOL/L (3.5-5.1); SODIUM LEVEL 140 MMOL/L (136-145)
[2022-07-14] MEDS: ATORVASTATIN 20 MG TAB PO SCH (21:00)
[2022-07-14] MEDS: TAMSULOSIN 0.4 MG CAP PO SCH (21:00)
[2022-07-14] MEDS ORDERED: NS 500 ML IV ONE (21:25)
[2022-07-14] MEDS ORDERED: DEXTROSE 50% 50ML SYRINGE IV PRN (21:30)
[2022-07-14] MEDS ORDERED: GLUCAGON INJ 1MG VIAL SC PRN (21:30)
[2022-07-14] MEDS ORDERED: GLUCOSE 4GM CHEW TABLET PO PRN (21:30)
[2022-07-14] MEDS: NS 1,000 ML IV SCH (22:35)
[2022-07-14] MEDS ORDERED: ACET-907 PO (22:42)
[2022-07-14] MEDS ORDERED: HOME MED LIST COMPLETE! XX SCH (22:45)
[2022-07-15 00:44] LABS: INR 1.13; PROTHROMBIN TIME 14.7 SECONDS (12.5-14.5)
[2022-07-15 00:45] LABS: PARTIAL THROMBOPLASTIN TIME 27.6 SECONDS (24.8-34.2)
[2022-07-15 00:50] LABS: HEMATOCRIT 26.1 % (42.0-52.0); HEMOGLOBIN 8.3 g/dl (13.5-17.5)
[2022-07-15] MEDS: INSULIN LISPRO (NovoLOG) PER UNIT SC SCH ×5 (01:49→20:55)
[2022-07-15 05:37] VITALS: BP 119/69
[2022-07-15] MEDS: LEVOTHYROXINE 88MCG TABLET (0.088 MG) PO SCH (06:02)
[2022-07-15 06:16] LABS: HEMATOCRIT 25.8 % (42.0-52.0); HEMOGLOBIN 8.6 g/dl (13.5-17.5); MEAN CORPUSCULAR HEMOGLOBIN 32.2 pg (27.0-33.0); MEAN CORPUSCULAR HGB CONC 33.3 g/dl (32.0-36.5); MEAN CORPUSCULAR VOLUME 96.6 fl (80.0-96.0); PLATELET COUNT, AUTOMATED 272 10^3/uL (150-450); RED BLOOD COUNT 2.67 10^6/uL (4.30-6.10); WHITE BLOOD COUNT 9.9 10^3/uL (4.0-10.0)
[2022-07-15 07:58] LABS: ALBUMIN 3.1 G/DL (3.2-5.2); ALKALINE PHOSPHATASE 57 U/L (46-116); ALT/SGPT 14 U/L (7.0-40); AST/SGOT 15 U/L (<34); BILIRUBIN,TOTAL 0.7 MG/DL (0.3-1.2); BLOOD UREA NITROGEN 15 MG/DL (9-23); CALCIUM LEVEL 8.6 MG/DL (8.3-10.6); CARBON DIOXIDE LEVEL 24 MMOL/L (20-31); CHLORIDE LEVEL 108 MMOL/L (98-107); CREATININE FOR GFR 0.86 MG/DL (0.70-1.30); GLOMERULAR FILTRATION RATE > 60.0 (>42); GLUCOSE, FASTING 89 MG/DL (74-106); POTASSIUM SERUM 3.5 MMOL/L (3.5-5.1); SODIUM LEVEL 141 MMOL/L (136-145); TOTAL PROTEIN 5.4 G/DL (5.7-8.2)
[2022-07-15] MEDS: ASPIRIN 81MG CHEW TABLET PO SCH (08:23)
[2022-07-15 08:24] VITALS: BP 103/62
[2022-07-15] MEDS: PANTOPRAZOLE 40MG VIAL IV SCH (08:26)
[2022-07-15] MEDS ORDERED: METOPROLOL SUCC *XL* 25MG TAB (TopROL *XL*) PO SCH (09:00)
[2022-07-15] MEDS ORDERED: CLOPIDOGREL 75 MG TAB PO SCH (09:00)
[2022-07-15 12:42] VITALS: BP 115/63
[2022-07-15] MEDS: NS 1,000 ML IV SCH ×2 (13:00→22:55)
[2022-07-15 17:13] LABS: HEMATOCRIT 25.7 % (42.0-52.0); HEMOGLOBIN 8.5 g/dl (13.5-17.5); MEAN CORPUSCULAR HGB CONC 33.1 g/dl (32.0-36.5); MEAN CORPUSCULAR VOLUME 96.6 fl (80.0-96.0); PLATELET COUNT, AUTOMATED 256 10^3/uL (150-450); RED BLOOD COUNT 2.66 10^6/uL (4.30-6.10); WHITE BLOOD COUNT 11.2 10^3/uL (4.0-10.0)
[2022-07-15 17:31] LABS: PERCENT SATURATION 3.2 % (19.7-50.0)
[2022-07-15 17:34] LABS: FERRITIN 11.1 NG/ML (10.5-307.3)
[2022-07-15 19:48] VITALS: BP 120/65
[2022-07-15] MEDS: TAMSULOSIN 0.4 MG CAP PO SCH (20:53)
[2022-07-15] MEDS: ATORVASTATIN 20 MG TAB PO SCH (20:53)
[2022-07-15 23:56] VITALS: BP 110/64
[2022-07-16] VITALS (15 sets, daily range): BP systolic 109–143; BP diastolic 62–76
[2022-07-16 05:51] LABS: HEMOGLOBIN 7.9 g/dl (13.5-17.5); MEAN CORPUSCULAR HEMOGLOBIN 30.7 pg (27.0-33.0); MEAN CORPUSCULAR HGB CONC 31.6 g/dl (32.0-36.5); MEAN CORPUSCULAR VOLUME 97.3 fl (80.0-96.0); PLATELET COUNT, AUTOMATED 238 10^3/uL (150-450); RED BLOOD COUNT 2.57 10^6/uL (4.30-6.10); WHITE BLOOD COUNT 10.3 10^3/uL (4.0-10.0)
[2022-07-16 06:25] LABS: ALBUMIN 2.8 G/DL (3.2-5.2); ALKALINE PHOSPHATASE 52 U/L (46-116); ALT/SGPT 11 U/L (7.0-40); AST/SGOT 12 U/L (<34); BILIRUBIN,TOTAL 0.6 MG/DL (0.3-1.2); BLOOD UREA NITROGEN 9 MG/DL (9-23); CALCIUM LEVEL 8.3 MG/DL (8.3-10.6); CARBON DIOXIDE LEVEL 22 MMOL/L (20-31); CHLORIDE LEVEL 109 MMOL/L (98-107); CREATININE FOR GFR 0.79 MG/DL (0.70-1.30); GLOMERULAR FILTRATION RATE > 60.0 (>42); GLUCOSE, FASTING 128 MG/DL (74-106); POTASSIUM SERUM 3.6 MMOL/L (3.5-5.1); SODIUM LEVEL 140 MMOL/L (136-145)
[2022-07-16] MEDS: LEVOTHYROXINE 88MCG TABLET (0.088 MG) PO SCH (07:53)
[2022-07-16] MEDS: PANTOPRAZOLE 40MG VIAL IV SCH (07:53)
[2022-07-16] MEDS: INSULIN LISPRO (NovoLOG) PER UNIT SC SCH ×4 (07:53→20:06)
[2022-07-16] MEDS: NS 1,000 ML IV SCH ×2 (07:54→23:51)
[2022-07-16] MEDS: ASPIRIN 81MG CHEW TABLET PO SCH (09:00)
[2022-07-16] MEDS ORDERED: LIDOCAINE 2% 100MG/5ML SDV (FOR ANES.) As Ordered ONE (15:53)
[2022-07-16] MEDS ORDERED: ONDANSETRON 4MG 2ML VIAL As Ordered ONE (15:53)
[2022-07-16] MEDS ORDERED: MIDAZOLAM INJ 2MG/2ML VIAL As Ordered ONE (15:53)
[2022-07-16] MEDS ORDERED: propofoL 200 MG/20 ML VIAL As Ordered ONE (15:53)
[2022-07-16] MEDS ORDERED: fentaNYL 100 MCG/2 ML INJECTION As Ordered ONE (15:54)
[2022-07-16] MEDS ORDERED: oxyCODONE 5MG TAB PO PRN (17:50)
[2022-07-16] MEDS ORDERED: LR 1,000 ML IV SCH (17:50)
[2022-07-16] MEDS ORDERED: ONDANSETRON 4MG 2ML VIAL IV PRN (17:50)
[2022-07-16] MEDS ORDERED: fentaNYL 100 MCG/2 ML INJECTION IV PRN (17:50)
[2022-07-16] MEDS: ATORVASTATIN 20 MG TAB PO SCH (20:24)
[2022-07-16] MEDS: TAMSULOSIN 0.4 MG CAP PO SCH (20:24)
[2022-07-17] VITALS (7 sets, daily range): BP systolic 101–117; BP diastolic 56–70
[2022-07-17 02:32] LABS: HEMATOCRIT 29.9 % (42.0-52.0); MEAN CORPUSCULAR HEMOGLOBIN 30.5 pg (27.0-33.0); MEAN CORPUSCULAR HGB CONC 33.1 g/dl (32.0-36.5); PLATELET COUNT, AUTOMATED 249 10^3/uL (150-450); RED BLOOD COUNT 3.25 10^6/uL (4.30-6.10)
[2022-07-17 02:35] LABS: HEMOGLOBIN 9.9 g/dl (13.5-17.5)
[2022-07-17] MEDS: LEVOTHYROXINE 88MCG TABLET (0.088 MG) PO SCH (05:40)
[2022-07-17 06:13] LABS: HEMOGLOBIN 9.9 g/dl (13.5-17.5); MEAN CORPUSCULAR HEMOGLOBIN 30.3 pg (27.0-33.0); MEAN CORPUSCULAR VOLUME 91.7 fl (80.0-96.0); PLATELET COUNT, AUTOMATED 242 10^3/uL (150-450); RED BLOOD COUNT 3.27 10^6/uL (4.30-6.10); WHITE BLOOD COUNT 6.5 10^3/uL (4.0-10.0)
[2022-07-17 06:45] LABS: ALBUMIN 2.8 G/DL (3.2-5.2); ALKALINE PHOSPHATASE 54 U/L (46-116); ALT/SGPT 12 U/L (7.0-40); AST/SGOT 11 U/L (<34); BILIRUBIN,TOTAL 0.9 MG/DL (0.3-1.2); BLOOD UREA NITROGEN 13 MG/DL (9-23); CALCIUM LEVEL 8.5 MG/DL (8.3-10.6); CARBON DIOXIDE LEVEL 21 MMOL/L (20-31); CHLORIDE LEVEL 110 MMOL/L (98-107); GLOMERULAR FILTRATION RATE > 60.0 (>42); GLUCOSE, FASTING 168 MG/DL (74-106); SODIUM LEVEL 139 MMOL/L (136-145); TOTAL PROTEIN 5.3 G/DL (5.7-8.2)
[2022-07-17] MEDS: INSULIN LISPRO (NovoLOG) PER UNIT SC SCH ×5 (07:30→20:54)
[2022-07-17] MEDS: ASPIRIN 81MG CHEW TABLET PO SCH (07:57)
[2022-07-17] MEDS: NS 1,000 ML IV SCH (07:57)
[2022-07-17] MEDS: PANTOPRAZOLE 40MG VIAL IV SCH (07:57)
[2022-07-17] MEDS: TAMSULOSIN 0.4 MG CAP PO SCH (20:54)
[2022-07-17] MEDS: ATORVASTATIN 20 MG TAB PO SCH (20:54)
[2022-07-18] VITALS (9 sets, daily range): BP systolic 100–123; BP diastolic 57–74
[2022-07-18] MEDS: LEVOTHYROXINE 88MCG TABLET (0.088 MG) PO SCH (05:56)
[2022-07-18 07:12] LABS: HEMATOCRIT 28.2 % (42.0-52.0); HEMOGLOBIN 9.1 g/dl (13.5-17.5); MEAN CORPUSCULAR HGB CONC 32.3 g/dl (32.0-36.5); MEAN CORPUSCULAR VOLUME 93.1 fl (80.0-96.0); PLATELET COUNT, AUTOMATED 245 10^3/uL (150-450); RED BLOOD COUNT 3.03 10^6/uL (4.30-6.10); WHITE BLOOD COUNT 8.5 10^3/uL (4.0-10.0)
[2022-07-18 07:38] LABS: ALBUMIN 2.7 G/DL (3.2-5.2); ALKALINE PHOSPHATASE 53 U/L (46-116); ALT/SGPT 13 U/L (7.0-40); AST/SGOT 13 U/L (<34); BILIRUBIN,TOTAL 0.5 MG/DL (0.3-1.2); BLOOD UREA NITROGEN 17 MG/DL (9-23); CALCIUM LEVEL 8.3 MG/DL (8.3-10.6); CARBON DIOXIDE LEVEL 23 MMOL/L (20-31); CHLORIDE LEVEL 111 MMOL/L (98-107); CREATININE FOR GFR 0.85 MG/DL (0.70-1.30); GLOMERULAR FILTRATION RATE > 60.0 (>42); GLUCOSE, FASTING 128 MG/DL (74-106); POTASSIUM SERUM 3.5 MMOL/L (3.5-5.1); SODIUM LEVEL 142 MMOL/L (136-145); TOTAL PROTEIN 5.2 G/DL (5.7-8.2)
[2022-07-18] MEDS: PANTOPRAZOLE 40MG VIAL IV SCH (07:57)
[2022-07-18] MEDS: ASPIRIN 81MG CHEW TABLET PO SCH (07:58)
[2022-07-18] MEDS: INSULIN LISPRO (NovoLOG) PER UNIT SC SCH ×4 (07:58→21:00)
[2022-07-18] MEDS ORDERED: MIRALAX *UNIT DOSE* 17GM PACKET PO PRN (17:30)
[2022-07-18 17:41] LABS: HEMATOCRIT 31.4 % (42.0-52.0); HEMOGLOBIN 10.5 g/dl (13.5-17.5); MEAN CORPUSCULAR HEMOGLOBIN 30.9 pg (27.0-33.0); MEAN CORPUSCULAR HGB CONC 33.4 g/dl (32.0-36.5); MEAN CORPUSCULAR VOLUME 92.4 fl (80.0-96.0); PLATELET COUNT, AUTOMATED 248 10^3/uL (150-450); WHITE BLOOD COUNT 8.5 10^3/uL (4.0-10.0)
[2022-07-18] MEDS: FERROUS SULFATE 325MG TAB PO SCH (21:54)
[2022-07-18] MEDS: DOCUSATE SODIUM 100MG CAPSULE PO SCH (21:54)
[2022-07-18] MEDS: TAMSULOSIN 0.4 MG CAP PO SCH (21:54)
[2022-07-18] MEDS: ATORVASTATIN 20 MG TAB PO SCH (21:54)
[2022-07-18] MEDS: SENNA 8.6 MG TAB (SENOKOT) PO SCH (21:54)
[2022-07-19 06:00] VITALS: BP 130/75
[2022-07-19] MEDS: LEVOTHYROXINE 88MCG TABLET (0.088 MG) PO SCH (06:00)
[2022-07-19 06:05] LABS: HEMATOCRIT 30.6 % (42.0-52.0); HEMOGLOBIN 10.2 g/dl (13.5-17.5); MEAN CORPUSCULAR HEMOGLOBIN 30.2 pg (27.0-33.0); MEAN CORPUSCULAR HGB CONC 33.3 g/dl (32.0-36.5); MEAN CORPUSCULAR VOLUME 90.5 fl (80.0-96.0); PLATELET COUNT, AUTOMATED 250 10^3/uL (150-450); RED BLOOD COUNT 3.38 10^6/uL (4.30-6.10); WHITE BLOOD COUNT 8.2 10^3/uL (4.0-10.0)
[2022-07-19 06:37] LABS: ALBUMIN 2.6 G/DL (3.2-5.2); ALKALINE PHOSPHATASE 57 U/L (46-116); ALT/SGPT 13 U/L (7.0-40); AST/SGOT 13 U/L (<34); BILIRUBIN,TOTAL 0.6 MG/DL (0.3-1.2); BLOOD UREA NITROGEN 14 MG/DL (9-23); CALCIUM LEVEL 8.4 MG/DL (8.3-10.6); CARBON DIOXIDE LEVEL 23 MMOL/L (20-31); CHLORIDE LEVEL 109 MMOL/L (98-107); CREATININE FOR GFR 0.82 MG/DL (0.70-1.30); GLOMERULAR FILTRATION RATE > 60.0 (>42); GLUCOSE, FASTING 127 MG/DL (74-106); POTASSIUM SERUM 3.6 MMOL/L (3.5-5.1); SODIUM LEVEL 140 MMOL/L (136-145)
[2022-07-19] MEDS: INSULIN LISPRO (NovoLOG) PER UNIT SC SCH ×4 (08:22→21:00)
[2022-07-19] MEDS: ASPIRIN 81MG CHEW TABLET PO SCH (08:23)
[2022-07-19] MEDS: PANTOPRAZOLE 40MG VIAL IV SCH (08:23)
[2022-07-19] MEDS: FERROUS SULFATE 325MG TAB PO SCH ×2 (08:23→20:42)
[2022-07-19] MEDS: DOCUSATE SODIUM 100MG CAPSULE PO SCH ×2 (08:23→20:42)
[2022-07-19] MEDS: CLOPIDOGREL 75 MG TAB PO SCH (08:24)
[2022-07-19 14:00] VITALS: BP 131/75
[2022-07-19] MEDS: ATORVASTATIN 20 MG TAB PO SCH (20:41)
[2022-07-19] MEDS: TAMSULOSIN 0.4 MG CAP PO SCH (20:41)
[2022-07-19] MEDS: SENNA 8.6 MG TAB (SENOKOT) PO SCH (20:42)
[2022-07-19 22:23] VITALS: BP 138/82
[2022-07-20 05:26] VITALS: BP 121/66
[2022-07-20] MEDS: LEVOTHYROXINE 88MCG TABLET (0.088 MG) PO SCH (05:29)
[2022-07-20 06:06] LABS: HEMATOCRIT 31.8 % (42.0-52.0); HEMOGLOBIN 10.6 g/dl (13.5-17.5); MEAN CORPUSCULAR HGB CONC 33.3 g/dl (32.0-36.5); MEAN CORPUSCULAR VOLUME 90.1 fl (80.0-96.0); PLATELET COUNT, AUTOMATED 255 10^3/uL (150-450); RED BLOOD COUNT 3.53 10^6/uL (4.30-6.10); WHITE BLOOD COUNT 6.7 10^3/uL (4.0-10.0)
[2022-07-20 06:43] LABS: ALBUMIN 2.6 G/DL (3.2-5.2); ALKALINE PHOSPHATASE 59 U/L (46-116); ALT/SGPT 14 U/L (7.0-40); AST/SGOT 14 U/L (<34); BILIRUBIN,TOTAL 0.6 MG/DL (0.3-1.2); BLOOD UREA NITROGEN 14 MG/DL (9-23); CALCIUM LEVEL 8.3 MG/DL (8.3-10.6); CARBON DIOXIDE LEVEL 24 MMOL/L (20-31); CHLORIDE LEVEL 109 MMOL/L (98-107); CREATININE FOR GFR 0.79 MG/DL (0.70-1.30); GLOMERULAR FILTRATION RATE > 60.0 (>42); GLUCOSE, FASTING 128 MG/DL (74-106); POTASSIUM SERUM 3.6 MMOL/L (3.5-5.1); SODIUM LEVEL 140 MMOL/L (136-145)
[2022-07-20] MEDS: FERROUS SULFATE 325MG TAB PO SCH (09:17)
[2022-07-20] MEDS: PANTOPRAZOLE 40MG VIAL IV SCH (09:18)
[2022-07-20] MEDS: ASPIRIN 81MG CHEW TABLET PO SCH (09:18)
[2022-07-20] MEDS: CLOPIDOGREL 75 MG TAB PO SCH (09:18)
[2022-07-20] MEDS: DOCUSATE SODIUM 100MG CAPSULE PO SCH (09:18)
[2022-07-20] MEDS: INSULIN LISPRO (NovoLOG) PER UNIT SC SCH (09:19)
[2022-07-20] MEDS ORDERED: ASCO500T PO (10:36)
[2022-07-20] MEDS ORDERED: FERR1TAB8 PO (10:36)
[2022-07-20] MEDS ORDERED: FLOM0.4C39 PO (10:36)
[2022-07-20] MEDS ORDERED: MIRA1POW3 PO (10:36)
== END 2022-07-20 12:03 | disposition home or self-care (01) | DRG 713 ==
LOC: M ED 16:52 → M ED INP 21:32 → M PCU 07-15 03:00 → M MSPAV 07-17 16:33
PROVIDERS: ADMIT Internal Medicine; ATTEND Student in an Organized Health Care Education/Training Program
PROC: 0TCB7ZZ Extirpation of Matter from Bladder, Via Natural or Artificial Opening (ICD-10-PCS; 2022-07-16)
PROC: 30233N1 Transfusion of Nonautologous Red Blood Cells into Peripheral Vein, Percutaneous Approach (ICD-10-PCS; 2022-07-16)
PROC: 0V507ZZ Destruction of Prostate, Via Natural or Artificial Opening (ICD-10-PCS; principal; 2022-07-16 17:00)
DX: N42.1 Congestion and hemorrhage of prostate (principal); D68.32 Hemorrhagic disorder due to extrinsic circulating anticoagulants; D62 Acute posthemorrhagic anemia; E78.5 Hyperlipidemia, unspecified; E03.9 Hypothyroidism, unspecified; I10 Essential (primary) hypertension; E11.9 Type 2 diabetes mellitus without complications; I25.10 Atherosclerotic heart disease of native coronary artery without angina pectoris; K21.9 Gastro-esophageal reflux disease without esophagitis; R33.9 Retention of urine, unspecified; J45.909 Unspecified asthma, uncomplicated; E78.00 Pure hypercholesterolemia, unspecified; Z79.899 Other long term (current) drug therapy; Z79.82 Long term (current) use of aspirin; I25.2 Old myocardial infarction

== ENCOUNTER 2022-07-24 07:53 | Inpatient (IN) | payer MEDICARE, OTHER ==
[~2022-07-24] VITALS: Ht 175.3 cm; Wt 70.6 kg
[2022-07-24] VITALS (9 sets, daily range): BP systolic 82–174; BP diastolic 54–109; O2SAT 94–98
[2022-07-24] MEDS: LEVOTHYROXINE 88MCG TABLET (0.088 MG) PO SCH (06:00)
[~2022-07-24 07:53] MED LIST changes: +ACET-907 PO; +ASCO500T PO; +FERR1TAB8 PO; +MIRA1POW3 PO
[2022-07-24] MEDS ORDERED: LIDOCAINE 2% 5ML JELLY UROJET TOP ONE ×2 (08:50→15:05)
[2022-07-24] MEDS ORDERED: lisinopriL 5 MG TAB PO SCH (09:00)
[2022-07-24] MEDS ORDERED: METOPROLOL SUCC *XL* 25MG TAB (TopROL *XL*) PO SCH (09:00)
[2022-07-24] MEDS ORDERED: SPIRONOLACTONE 12.5MG PER 1/2 TABLET PO SCH (09:00)
[2022-07-24 09:08] LABS: HEMATOCRIT 37.1 % (42.0-52.0); HEMOGLOBIN 11.8 g/dl (13.5-17.5); MEAN CORPUSCULAR HEMOGLOBIN 29.6 pg (27.0-33.0); MEAN CORPUSCULAR HGB CONC 31.8 g/dl (32.0-36.5); MEAN CORPUSCULAR VOLUME 93.2 fl (80.0-96.0); PLATELET COUNT, AUTOMATED 313 10^3/uL (150-450); RED BLOOD COUNT 3.98 10^6/uL (4.30-6.10)
[2022-07-24 09:30] LABS: BLOOD UREA NITROGEN 17 MG/DL (9-23); CALCIUM LEVEL 8.9 MG/DL (8.3-10.6); CARBON DIOXIDE LEVEL 23 MMOL/L (20-31); CHLORIDE LEVEL 108 MMOL/L (98-107); GLOMERULAR FILTRATION RATE > 60.0 (>42); GLUCOSE, FASTING 163 MG/DL (74-106); SODIUM LEVEL 141 MMOL/L (136-145)
[2022-07-24 09:41] LABS: RSV AMPLIFICATION NEGATIVE (NEGATIVE)
[2022-07-24] MEDS ORDERED: VITA500T9 PO (10:51)
[2022-07-24] MEDS ORDERED: MM S100C PO (10:51)
[2022-07-24] MEDS ORDERED: FERR325T19 PO (10:51)
[2022-07-24] MEDS ORDERED: FLOM0.4C39 PO (10:51)
[2022-07-24] MEDS ORDERED: HOME MED LIST COMPLETE! XX SCH (10:55)
[2022-07-24 11:07] LABS: CK-MB VALUE MASS < 1.0 NG/ML (<3.6)
[2022-07-24 11:10] LABS: CPK CREATINE PHOSPHOKINASE 35 U/L (46-171); MB/CK RELATIVE INDEX 2.85 (< OR =4)
[2022-07-24] MEDS: INSULIN LISPRO (NovoLOG) PER UNIT SC SCH ×3 (12:00→21:00)
[2022-07-24] MEDS ORDERED: GLUCOSE 4GM CHEW TABLET PO PRN (12:10)
[2022-07-24] MEDS ORDERED: DEXTROSE 50% 50ML SYRINGE IV PRN (12:10)
[2022-07-24] MEDS ORDERED: GLUCAGON INJ 1MG VIAL SC PRN (12:10)
[2022-07-24] MEDS: DAPAGLIFLOZIN PROPANEDIOL 10MG TABLET (FARXIGA) PO SCH (12:19)
[2022-07-24] MEDS: ASPIRIN 81MG CHEW TABLET PO SCH (12:20)
[2022-07-24] MEDS: cefTRIAXone SOD 1 GM in D5W MINI-BAG PLUS 50 ML IV SCH (12:20)
[2022-07-24] MEDS: PANTOPRAZOLE 40MG TAB (PROTONIX) PO SCH (12:20)
[2022-07-24 12:22] LABS: HEMATOCRIT 35.2 % (42.0-52.0); HEMOGLOBIN 11.2 g/dl (13.5-17.5)
[2022-07-24] MEDS ORDERED: oxyBUTYnin 5 MG TAB PO PRN (13:50)
[2022-07-24] MEDS ORDERED: MOM 30ML SUSPENSION UDC PO PRN (13:50)
[2022-07-24] MEDS ORDERED: MORPHINE 4 MG/ML 1ML VIAL IV ONE (13:50)
[2022-07-24] MEDS ORDERED: PERCOCET 5MG/325MG TAB PO PRN ×4 (13:50→19:05)
[2022-07-24] MEDS ORDERED: SENOKOT S TAB PO PRN (13:50)
[2022-07-24] MEDS ORDERED: MIRALAX *UNIT DOSE* 17GM PACKET PO PRN (13:50)
[2022-07-24] MEDS ORDERED: LIDOCAINE 2% 5ML JELLY UROJET As Ordered ONE (15:10)
[2022-07-24] MEDS ORDERED: HYDROMORPHONE HCL 0.5 MG/ 0.5 ML SYRINGE IV ONE (15:30)
[2022-07-24] MEDS ORDERED: fentaNYL 100 MCG/2 ML INJECTION As Ordered ONE (15:51)
[2022-07-24] MEDS ORDERED: propofoL 200 MG/20 ML VIAL As Ordered ONE (15:51)
[2022-07-24] MEDS ORDERED: LIDOCAINE 2% 100MG/5ML SDV (FOR ANES.) As Ordered ONE (15:51)
[2022-07-24] MEDS ORDERED: MIDAZOLAM INJ 2MG/2ML VIAL As Ordered ONE (15:51)
[2022-07-24] MEDS ORDERED: NS 1,000 ML IV ONE (17:00)
[2022-07-24] MEDS ORDERED: cefTRIAXone SOD 1GM VIAL As Ordered ONE (17:53)
[2022-07-24] MEDS ORDERED: HYDROMORPHONE HCL 0.5 MG/ 0.5 ML SYRINGE IV PRN (18:00)
[2022-07-24] MEDS ORDERED: ONDANSETRON 4MG 2ML VIAL As Ordered ONE (18:28)
[2022-07-24] MEDS ORDERED: PHENYLephrine 500MCG 5ML (100MCG/ML) SYRINGE As Ordered ONE (18:37)
[2022-07-24] MEDS ORDERED: ePHEDrine SULFATE 25 MG/5 ML(5MG/ML) SYRINGE As Ordered ONE (18:37)
[2022-07-24] MEDS ORDERED: ONDANSETRON 4MG 2ML VIAL IV PRN (19:10)
[2022-07-24 19:41] LABS: HEMATOCRIT 31.3 % (42.0-52.0); HEMOGLOBIN 9.9 g/dl (13.5-17.5)
[2022-07-24] MEDS: amLODIPine 5 MG TAB PO SCH (21:00)
[2022-07-24] MEDS: ATORVASTATIN 20 MG TAB PO SCH (21:07)
[2022-07-24] MEDS: TAMSULOSIN 0.4 MG CAP PO SCH (21:08)
[2022-07-25] VITALS (20 sets, daily range): BP systolic 98–121; BP diastolic 59–65; O2SAT 93–98
[2022-07-25 00:56] LABS: HEMATOCRIT 32.2 % (42.0-52.0); HEMOGLOBIN 10.5 g/dl (13.5-17.5)
[2022-07-25 05:44] LABS: HEMATOCRIT 31.1 % (42.0-52.0); HEMOGLOBIN 9.9 g/dl (13.5-17.5)
[2022-07-25 06:06] LABS: BLOOD UREA NITROGEN 19 MG/DL (9-23); CALCIUM LEVEL 8.3 MG/DL (8.3-10.6); CARBON DIOXIDE LEVEL 25 MMOL/L (20-31); CHLORIDE LEVEL 107 MMOL/L (98-107); CREATININE FOR GFR 1.11 MG/DL (0.70-1.30); GLOMERULAR FILTRATION RATE > 60.0 (>42); GLUCOSE, FASTING 162 MG/DL (74-106); POTASSIUM SERUM 4.3 MMOL/L (3.5-5.1); SODIUM LEVEL 141 MMOL/L (136-145)
[2022-07-25] MEDS: LEVOTHYROXINE 88MCG TABLET (0.088 MG) PO SCH (06:41)
[2022-07-25] MEDS: INSULIN LISPRO (NovoLOG) PER UNIT SC SCH ×4 (08:51→20:50)
[2022-07-25] MEDS: PANTOPRAZOLE 40MG TAB (PROTONIX) PO SCH (08:52)
[2022-07-25] MEDS: ASPIRIN 81MG CHEW TABLET PO SCH (08:52)
[2022-07-25] MEDS: DAPAGLIFLOZIN PROPANEDIOL 10MG TABLET (FARXIGA) PO SCH (08:52)
[2022-07-25] MEDS: amLODIPine 5 MG TAB PO SCH ×2 (08:53→20:38)
[2022-07-25] MEDS: METOPROLOL SUCC *XL* 25MG TAB (TopROL *XL*) PO SCH (08:53)
[2022-07-25 12:03] LABS: HEMATOCRIT 29.6 % (42.0-52.0); HEMOGLOBIN 9.4 g/dl (13.5-17.5)
[2022-07-25] MEDS: cefTRIAXone SOD 1 GM in D5W MINI-BAG PLUS 50 ML IV SCH (13:31)
[2022-07-25 18:11] LABS: HEMATOCRIT 29.7 % (42.0-52.0); HEMOGLOBIN 9.5 g/dl (13.5-17.5)
[2022-07-25] MEDS: ATORVASTATIN 20 MG TAB PO SCH (20:46)
[2022-07-25] MEDS: TAMSULOSIN 0.4 MG CAP PO SCH (20:46)
[2022-07-26] VITALS (19 sets, daily range): BP systolic 104–139; BP diastolic 62–78; O2SAT 94–99
[2022-07-26 00:37] LABS: HEMATOCRIT 28.3 % (42.0-52.0); HEMOGLOBIN 9.1 g/dl (13.5-17.5)
[2022-07-26] MEDS: LEVOTHYROXINE 88MCG TABLET (0.088 MG) PO SCH (05:09)
[2022-07-26 06:21] LABS: HEMATOCRIT 28.7 % (42.0-52.0); HEMOGLOBIN 9.2 g/dl (13.5-17.5)
[2022-07-26 06:55] LABS: BLOOD UREA NITROGEN 16 MG/DL (9-23); CALCIUM LEVEL 8.3 MG/DL (8.3-10.6); CARBON DIOXIDE LEVEL 26 MMOL/L (20-31); CHLORIDE LEVEL 107 MMOL/L (98-107); CREATININE FOR GFR 0.98 MG/DL (0.70-1.30); GLOMERULAR FILTRATION RATE > 60.0 (>42); GLUCOSE, FASTING 131 MG/DL (74-106); POTASSIUM SERUM 3.6 MMOL/L (3.5-5.1); SODIUM LEVEL 140 MMOL/L (136-145)
[2022-07-26] MEDS: INSULIN LISPRO (NovoLOG) PER UNIT SC SCH ×4 (07:30→21:00)
[2022-07-26] MEDS: amLODIPine 5 MG TAB PO SCH ×2 (08:06→21:00)
[2022-07-26] MEDS: PANTOPRAZOLE 40MG TAB (PROTONIX) PO SCH (08:06)
[2022-07-26] MEDS: DAPAGLIFLOZIN PROPANEDIOL 10MG TABLET (FARXIGA) PO SCH (08:06)
[2022-07-26] MEDS: ASPIRIN 81MG CHEW TABLET PO SCH (08:06)
[2022-07-26] MEDS: METOPROLOL SUCC *XL* 25MG TAB (TopROL *XL*) PO SCH (08:07)
[2022-07-26] MEDS: NITROFURANTOIN (MACROBID) 100 MG CAP PO SCH ×2 (15:32→21:18)
[2022-07-26 18:36] LABS: HEMATOCRIT 33.3 % (42.0-52.0); HEMOGLOBIN 10.6 g/dl (13.5-17.5)
[2022-07-26] MEDS: ATORVASTATIN 20 MG TAB PO SCH (21:17)
[2022-07-26] MEDS: TAMSULOSIN 0.4 MG CAP PO SCH (21:17)
[2022-07-27 03:36] VITALS: BP 130/69
[2022-07-27] MEDS: LEVOTHYROXINE 88MCG TABLET (0.088 MG) PO SCH (05:03)
[2022-07-27 06:01] LABS: HEMATOCRIT 31.8 % (42.0-52.0); HEMOGLOBIN 10.4 g/dl (13.5-17.5)
[2022-07-27 06:25] LABS: BLOOD UREA NITROGEN 15 MG/DL (9-23); CALCIUM LEVEL 8.3 MG/DL (8.3-10.6); CARBON DIOXIDE LEVEL 24 MMOL/L (20-31); CHLORIDE LEVEL 110 MMOL/L (98-107); CREATININE FOR GFR 0.79 MG/DL (0.70-1.30); GLOMERULAR FILTRATION RATE > 60.0 (>42); GLUCOSE, FASTING 128 MG/DL (74-106); POTASSIUM SERUM 3.8 MMOL/L (3.5-5.1); SODIUM LEVEL 142 MMOL/L (136-145)
[2022-07-27] MEDS: NITROFURANTOIN (MACROBID) 100 MG CAP PO SCH (08:25)
[2022-07-27] MEDS: INSULIN LISPRO (NovoLOG) PER UNIT SC SCH ×2 (08:25→12:56)
[2022-07-27] MEDS: DAPAGLIFLOZIN PROPANEDIOL 10MG TABLET (FARXIGA) PO SCH (08:25)
[2022-07-27] MEDS: ASPIRIN 81MG CHEW TABLET PO SCH (08:26)
[2022-07-27] MEDS: PANTOPRAZOLE 40MG TAB (PROTONIX) PO SCH (08:26)
[2022-07-27 08:27] VITALS: BP_SYST 131; BP_DIAS 57; BP_DIAS 75
[2022-07-27] MEDS: amLODIPine 5 MG TAB PO SCH (08:27)
[2022-07-27] MEDS: METOPROLOL SUCC *XL* 25MG TAB (TopROL *XL*) PO SCH (08:27)
[2022-07-27 12:20] VITALS: BP 136/81
[2022-07-27] MEDS ORDERED: AMLO1TAB24 PO (13:05)
[2022-07-27] MEDS ORDERED: CEFD300C41 PO (13:05)
== END 2022-07-27 15:10 | disposition home or self-care (01) | DRG 988 ==
LOC: M ED 07:53 → M ED INP 10:22 → ENRESERV 11:03 → M MSPAV 11:42 → M PCU 14:43
PROVIDERS: ADMIT General Practice; ATTEND Internal Medicine
PROC: 0TCB8ZZ Extirpation of Matter from Bladder, Via Natural or Artificial Opening Endoscopic (ICD-10-PCS; 2022-07-24)
PROC: 0VB08ZZ Excision of Prostate, Via Natural or Artificial Opening Endoscopic (ICD-10-PCS; principal; 2022-07-24 15:35)
PROC: 30233N1 Transfusion of Nonautologous Red Blood Cells into Peripheral Vein, Percutaneous Approach (ICD-10-PCS; 2022-07-26)
DX: D68.32 Hemorrhagic disorder due to extrinsic circulating anticoagulants (principal); D62 Acute posthemorrhagic anemia; N39.0 Urinary tract infection, site not specified; R31.0 Gross hematuria; I10 Essential (primary) hypertension; J45.909 Unspecified asthma, uncomplicated; E03.9 Hypothyroidism, unspecified; E11.9 Type 2 diabetes mellitus without complications; I25.2 Old myocardial infarction; K21.9 Gastro-esophageal reflux disease without esophagitis; E78.5 Hyperlipidemia, unspecified; I25.10 Atherosclerotic heart disease of native coronary artery without angina pectoris; N40.0 Benign prostatic hyperplasia without lower urinary tract symptoms; N45.2 Orchitis; R33.9 Retention of urine, unspecified; Z79.82 Long term (current) use of aspirin; Z95.1 Presence of aortocoronary bypass graft; Z95.5 Presence of coronary angioplasty implant and graft; T45.7X5A Adverse effect of anticoagulant antagonists, vitamin K and other coagulants, initial encounter; Z79.899 Other long term (current) drug therapy

== ENCOUNTER 2022-08-01 07:32 | Emergency (ER) | payer OTHER ==
[~2022-08-01] VITALS: Ht 175.3 cm; Wt 73.1 kg
[~2022-08-01 07:32] MED LIST changes: +AMLO1TAB24 PO; +ASPI-655 PO; -ASPI1CHW3 PO; +FERR325T19 PO; +MM S100C PO; +VITA500T9 PO
[2022-08-01] MEDS ORDERED: NS 1,000 ML IV ONE ×2 (08:10→10:15)
[2022-08-01 08:26] LABS: BASO # 0.1 10^3/uL (0.0-0.2); BASO % 0.8 % (0.0-1.0); EOS # 0.2 10^3/uL (0.0-0.5); EOS % 2.4 % (0.0-3.0); HEMOGLOBIN 10.9 g/dl (13.5-17.5); LYMPH # 1.5 10^3/uL (1.5-5.0); LYMPH % 20.1 % (24.0-44.0); MEAN CORPUSCULAR HEMOGLOBIN 29.8 pg (27.0-33.0); MEAN CORPUSCULAR HGB CONC 32.1 g/dl (32.0-36.5); MEAN CORPUSCULAR VOLUME 92.9 fl (80.0-96.0); MONO # 0.5 10^3/uL (0.0-0.8); MONO % 6.9 % (2.0-8.0); NEUTROPHILS # 5.3 10^3/uL (1.5-8.5); PLATELET COUNT, AUTOMATED 471 10^3/uL (150-450); RED BLOOD COUNT 3.66 10^6/uL (4.30-6.10); WHITE BLOOD COUNT 7.6 10^3/uL (4.0-10.0)
[2022-08-01 08:39] LABS: INR 0.96
[2022-08-01 08:40] LABS: PARTIAL THROMBOPLASTIN TIME 27.5 SECONDS (24.8-34.2)
[2022-08-01 08:48] LABS: ALBUMIN 3.2 G/DL (3.2-5.2); BILIRUBIN,DIRECT 0.2 MG/DL (<0.4); BILIRUBIN,TOTAL 0.4 MG/DL (0.3-1.2); TOTAL PROTEIN 6.3 G/DL (5.7-8.2)
[2022-08-01] MEDS ORDERED: FUROSEMIDE 40MG/4ML VIAL IV ONE (10:10)
[2022-08-01 11:55] VITALS: BP 139/78
== END 2022-08-01 11:59 | disposition home or self-care (01) ==
LOC: M ED 07:32
DX: R31.0 Gross hematuria (principal); E11.9 Type 2 diabetes mellitus without complications; I10 Essential (primary) hypertension; E78.5 Hyperlipidemia, unspecified; R51.9 Headache, unspecified; K21.9 Gastro-esophageal reflux disease without esophagitis; F43.10 Post-traumatic stress disorder, unspecified; E03.9 Hypothyroidism, unspecified; K57.92 Diverticulitis of intestine, part unspecified, without perforation or abscess without bleeding; N40.0 Benign prostatic hyperplasia without lower urinary tract symptoms; M54.9 Dorsalgia, unspecified; Z79.899 Other long term (current) drug therapy; Z79.82 Long term (current) use of aspirin; Z79.84 Long term (current) use of oral hypoglycemic drugs
CPT/HCPCS: 76775; 80047; 80076; 81001; 85025; 85610; 85730; 87086; 96374; 99284; J1940

== ENCOUNTER 2022-08-02 02:31 | Emergency (ER) | payer MEDICARE, OTHER ==
[~2022-08-02] VITALS: Ht 175.3 cm; Wt 74.0 kg
[2022-08-02 03:59] LABS: BASO # 0.1 10^3/uL (0.0-0.2); BASO % 0.6 % (0.0-1.0); EOS # 0.2 10^3/uL (0.0-0.5); EOS % 2.2 % (0.0-3.0); HEMATOCRIT 32.9 % (42.0-52.0); HEMOGLOBIN 10.5 g/dl (13.5-17.5); LYMPH # 1.6 10^3/uL (1.5-5.0); LYMPH % 19.3 % (24.0-44.0); MEAN CORPUSCULAR HEMOGLOBIN 29.7 pg (27.0-33.0); MEAN CORPUSCULAR HGB CONC 31.9 g/dl (32.0-36.5); MEAN CORPUSCULAR VOLUME 92.9 fl (80.0-96.0); MONO # 0.6 10^3/uL (0.0-0.8); MONO % 7.9 % (2.0-8.0); NEUTROPHILS # 5.6 10^3/uL (1.5-8.5); NEUTROPHILS % 69.3 % (36.0-66.0); PLATELET COUNT, AUTOMATED 471 10^3/uL (150-450); RED BLOOD COUNT 3.54 10^6/uL (4.30-6.10); WHITE BLOOD COUNT 8.1 10^3/uL (4.0-10.0)
[2022-08-02 04:23] LABS: BLOOD UREA NITROGEN 16 MG/DL (9-23); CALCIUM LEVEL 8.7 MG/DL (8.3-10.6); CARBON DIOXIDE LEVEL 26 MMOL/L (20-31); CHLORIDE LEVEL 109 MMOL/L (98-107); CREATININE FOR GFR 0.91 MG/DL (0.70-1.30); GLOMERULAR FILTRATION RATE > 60.0 (>42); GLUCOSE, FASTING 141 MG/DL (74-106); POTASSIUM SERUM 4.2 MMOL/L (3.5-5.1); SODIUM LEVEL 142 MMOL/L (136-145)
[2022-08-02] MEDS ORDERED: FUROSEMIDE 100MG/10ML VIAL IV ONE (05:25)
[2022-08-02] MEDS ORDERED: NS 500 ML IV ONE (05:25)
[2022-08-02 07:46] VITALS: BP 106/69
== END 2022-08-02 07:47 | disposition home or self-care (01) ==
LOC: M ED 02:31
DX: R31.9 Hematuria, unspecified (principal); E11.9 Type 2 diabetes mellitus without complications; I10 Essential (primary) hypertension; E03.9 Hypothyroidism, unspecified; K21.9 Gastro-esophageal reflux disease without esophagitis; E78.5 Hyperlipidemia, unspecified; Z79.82 Long term (current) use of aspirin; Z79.84 Long term (current) use of oral hypoglycemic drugs; Z79.899 Other long term (current) drug therapy
CPT/HCPCS: 80048; 85025; 86850; 86900; 86901; 96374; 99284; J1940

== ENCOUNTER 2022-08-07 16:41 | Observation (INO) | payer OTHER ==
[~2022-08-07] VITALS: Ht 175.3 cm; Wt 68.7 kg
[2022-08-07 18:39] LABS: BASO % 0.5 % (0.0-1.0); EOS # 0.1 10^3/uL (0.0-0.5); EOS % 1.7 % (0.0-3.0); HEMATOCRIT 34.1 % (42.0-52.0); HEMOGLOBIN 10.8 g/dl (13.5-17.5); LYMPH # 1.5 10^3/uL (1.5-5.0); MEAN CORPUSCULAR HEMOGLOBIN 28.7 pg (27.0-33.0); MEAN CORPUSCULAR HGB CONC 31.7 g/dl (32.0-36.5); MEAN CORPUSCULAR VOLUME 90.7 fl (80.0-96.0); MONO # 0.6 10^3/uL (0.0-0.8); NEUTROPHILS # 4.1 10^3/uL (1.5-8.5); NEUTROPHILS % 64.5 % (36.0-66.0); PLATELET COUNT, AUTOMATED 415 10^3/uL (150-450); RED BLOOD COUNT 3.76 10^6/uL (4.30-6.10); WHITE BLOOD COUNT 6.4 10^3/uL (4.0-10.0)
[2022-08-07] MEDS ORDERED: NS 1,000 ML IV ONE (20:00)
[2022-08-07] MEDS ORDERED: AMLO1TAB24 PO (20:40)
[2022-08-07] MEDS ORDERED: HOME MED LIST COMPLETE! XX SCH (20:45)
[2022-08-07] MEDS ORDERED: GLUCAGON INJ 1MG VIAL SC PRN (20:55)
[2022-08-07] MEDS ORDERED: GLUCOSE 4GM CHEW TABLET PO PRN (20:55)
[2022-08-07] MEDS ORDERED: DOCUSATE SODIUM 100MG CAPSULE PO PRN (20:55)
[2022-08-07] MEDS ORDERED: DEXTROSE 50% 50ML SYRINGE IV PRN (20:55)
[2022-08-07] MEDS ORDERED: ACETAMINOPHEN 325 MG TAB PO PRN (20:55)
[2022-08-07] MEDS: INSULIN LISPRO (NovoLOG) PER UNIT SC SCH (21:00)
[2022-08-07 21:08] LABS: RSV AMPLIFICATION NEGATIVE (NEGATIVE)
[2022-08-07] MEDS: ATORVASTATIN 20 MG TAB PO SCH (22:09)
[2022-08-07] MEDS: TAMSULOSIN 0.4 MG CAP PO SCH (22:10)
[2022-08-07] MEDS: LR 1,000 ML IV SCH (22:11)
[2022-08-07 22:32] VITALS: BP 126/70
[2022-08-07 23:45] LABS: BLOOD UREA NITROGEN 17 MG/DL (9-23); CALCIUM LEVEL 8.6 MG/DL (8.3-10.6); CARBON DIOXIDE LEVEL 25 MMOL/L (20-31); CHLORIDE LEVEL 106 MMOL/L (98-107); CREATININE FOR GFR 0.93 MG/DL (0.70-1.30); GLOMERULAR FILTRATION RATE > 60.0 (>42); GLUCOSE, FASTING 100 MG/DL (74-106); MAGNESIUM LEVEL 1.3 MG/DL (1.8-2.4); SODIUM LEVEL 137 MMOL/L (136-145)
[2022-08-08] MEDS: MAG SULF 1GM/100ML (MAG RUN) 1 GM in IV 1 EA IV SCH ×2 (02:08→03:35)
[2022-08-08 05:20] VITALS: BP 126/69
[2022-08-08 06:34] LABS: HEMATOCRIT 32.8 % (42.0-52.0); HEMOGLOBIN 10.6 g/dl (13.5-17.5); MEAN CORPUSCULAR HEMOGLOBIN 29.1 pg (27.0-33.0); MEAN CORPUSCULAR HGB CONC 32.3 g/dl (32.0-36.5); MEAN CORPUSCULAR VOLUME 90.1 fl (80.0-96.0); PLATELET COUNT, AUTOMATED 387 10^3/uL (150-450); RED BLOOD COUNT 3.64 10^6/uL (4.30-6.10); WHITE BLOOD COUNT 8.4 10^3/uL (4.0-10.0)
[2022-08-08] MEDS: LEVOTHYROXINE 88MCG TABLET (0.088 MG) PO SCH (06:37)
[2022-08-08 06:55] LABS: BLOOD UREA NITROGEN 13 MG/DL (9-23); CALCIUM LEVEL 9.2 MG/DL (8.3-10.6); CARBON DIOXIDE LEVEL 26 MMOL/L (20-31); CHLORIDE LEVEL 105 MMOL/L (98-107); GLOMERULAR FILTRATION RATE > 60.0 (>42); GLUCOSE, FASTING 126 MG/DL (74-106); MAGNESIUM LEVEL 1.9 MG/DL (1.8-2.4); POTASSIUM SERUM 4.2 MMOL/L (3.5-5.1); SODIUM LEVEL 138 MMOL/L (136-145)
[2022-08-08] MEDS: LR 1,000 ML IV SCH (07:15)
[2022-08-08] MEDS: INSULIN LISPRO (NovoLOG) PER UNIT SC SCH ×4 (07:30→20:37)
[2022-08-08] MEDS ORDERED: lisinopriL 5 MG TAB PO SCH (09:00)
[2022-08-08] MEDS ORDERED: FERROUS SULFATE 325MG TAB PO SCH (09:00)
[2022-08-08] MEDS ORDERED: METOPROLOL SUCC *XL* 12.5MG PER 1/2 TAB (TopROL *XL*) PO SCH (09:00)
[2022-08-08] MEDS ORDERED: ASCORBIC ACID 500 MG TAB PO SCH (09:00)
[2022-08-08] MEDS ORDERED: SPIRONOLACTONE 12.5MG PER 1/2 TABLET PO SCH (09:00)
[2022-08-08 09:26] VITALS: BP 126/69
[2022-08-08] MEDS: PANTOPRAZOLE 40MG TAB (PROTONIX) PO SCH (09:26)
[2022-08-08] MEDS: ASPIRIN 81MG CHEW TABLET PO SCH (09:26)
[2022-08-08] MEDS: CLOPIDOGREL 75 MG TAB PO SCH (09:26)
[2022-08-08] MEDS ORDERED: PILL CUTTER 1 EACH XX PRN (09:45)
[2022-08-08 14:00] VITALS: BP 102/58
[2022-08-08 20:00] VITALS: BP 102/57
[2022-08-08] MEDS: ATORVASTATIN 20 MG TAB PO SCH (20:12)
[2022-08-08] MEDS: TAMSULOSIN 0.4 MG CAP PO SCH (20:12)
[2022-08-09 06:00] VITALS: BP 104/59
[2022-08-09] MEDS: LEVOTHYROXINE 88MCG TABLET (0.088 MG) PO SCH (06:05)
[2022-08-09 08:40] VITALS: BP_SYST 105; BP_SYST 76; BP_DIAS 48; BP_DIAS 65
[2022-08-09] MEDS: PANTOPRAZOLE 40MG TAB (PROTONIX) PO SCH (08:41)
[2022-08-09] MEDS: CLOPIDOGREL 75 MG TAB PO SCH (08:41)
[2022-08-09] MEDS: ASPIRIN 81MG CHEW TABLET PO SCH (08:41)
[2022-08-09] MEDS: INSULIN LISPRO (NovoLOG) PER UNIT SC SCH ×2 (08:42→12:00)
[2022-08-09] MEDS ORDERED: METOPROLOL SUCC *XL* 25MG TAB (TopROL *XL*) PO SCH (09:00)
[2022-08-09] MEDS ORDERED: cefTRIAXone SOD 1 GM in D5W MINI-BAG PLUS 50 ML IV ONE (09:00)
[2022-08-09] MEDS ORDERED: METOPROLOL SUCC *XL* 12.5MG PER 1/2 TAB (TopROL *XL*) PO SCH (09:00)
[2022-08-09] MEDS ORDERED: CEFD300C41 PO (09:40)
[2022-08-09] MEDS ORDERED: PROB250C PO (09:40)
[2022-08-10] MEDS ORDERED: CEFD300C41 PO (08:58)
[2022-08-10] MEDS ORDERED: PROB250C PO (08:58)
== END 2022-08-09 12:37 | disposition home or self-care (01) ==
LOC: M ED 16:41 → M ED INP 20:52 → M MSPAV 22:51
PROVIDERS: ADMIT Internal Medicine; ATTEND Internal Medicine
DX: I95.1 Orthostatic hypotension (principal); I25.10 Atherosclerotic heart disease of native coronary artery without angina pectoris; Z98.61 Coronary angioplasty status; D50.9 Iron deficiency anemia, unspecified; R00.1 Bradycardia, unspecified; K21.9 Gastro-esophageal reflux disease without esophagitis; E03.9 Hypothyroidism, unspecified; E11.9 Type 2 diabetes mellitus without complications; Z79.899 Other long term (current) drug therapy; Z79.82 Long term (current) use of aspirin; R31.9 Hematuria, unspecified

== ENCOUNTER 2022-08-28 05:50 | Inpatient (IN) | payer OTHER ==
[2022-08-28] VITALS (12 sets, daily range): BP systolic 124–165; BP diastolic 69–90
[~2022-08-28] VITALS: Ht 182.9 cm; Wt 72.6 kg
[~2022-08-28 05:50] MED LIST changes: +PROB250C PO
[2022-08-28 06:24] LABS: BASO % 0.4 % (0.0-1.0); EOS # 0.1 10^3/uL (0.0-0.5); EOS % 1.5 % (0.0-3.0); INR 0.99; LYMPH # 1.2 10^3/uL (1.5-5.0); LYMPH % 13.2 % (24.0-44.0); MEAN CORPUSCULAR HEMOGLOBIN 28.1 pg (27.0-33.0); MEAN CORPUSCULAR HGB CONC 30.4 g/dl (32.0-36.5); MEAN CORPUSCULAR VOLUME 92.4 fl (80.0-96.0); MONO # 0.8 10^3/uL (0.0-0.8); MONO % 8.1 % (2.0-8.0); NEUTROPHILS # 7.1 10^3/uL (1.5-8.5); NEUTROPHILS % 76.5 % (36.0-66.0); PLATELET COUNT, AUTOMATED 349 10^3/uL (150-450); PROTHROMBIN TIME 13.3 SECONDS (12.5-14.5); RED BLOOD COUNT 2.49 10^6/uL (4.30-6.10); WHITE BLOOD COUNT 9.3 10^3/uL (4.0-10.0)
[2022-08-28 06:25] LABS: PARTIAL THROMBOPLASTIN TIME 25.1 SECONDS (24.8-34.2)
[2022-08-28 06:29] LABS: LIPASE 25 U/L (12-53)
[2022-08-28 06:32] LABS: ALBUMIN 3.1 G/DL (3.2-5.2); ALKALINE PHOSPHATASE 68 U/L (46-116); ALT/SGPT 11 U/L (7.0-40); AST/SGOT 15 U/L (<34); BILIRUBIN,DIRECT 0.2 MG/DL (<0.4); BILIRUBIN,TOTAL 0.4 MG/DL (0.3-1.2); BLOOD UREA NITROGEN 13 MG/DL (9-23); CALCIUM LEVEL 8.6 MG/DL (8.3-10.6); CARBON DIOXIDE LEVEL 24 MMOL/L (20-31); CHLORIDE LEVEL 109 MMOL/L (98-107); CREATININE FOR GFR 0.93 MG/DL (0.70-1.30); GLOMERULAR FILTRATION RATE > 60.0 (>42); GLUCOSE, FASTING 133 MG/DL (74-106); SODIUM LEVEL 140 MMOL/L (136-145); TOTAL PROTEIN 5.7 G/DL (5.7-8.2)
[2022-08-28] MEDS ORDERED: NS 1,000 ML IV SCH (07:40)
[2022-08-28] MEDS ORDERED: LIDOCAINE 2% 5ML JELLY UROJET TOP ONE (07:40)
[2022-08-28 08:22] LABS: RSV AMPLIFICATION NEGATIVE (NEGATIVE)
[2022-08-28] MEDS ORDERED: FUROSEMIDE 40MG/4ML VIAL IV ONE ×2 (08:35→18:00)
[2022-08-28] MEDS ORDERED: HOME MED LIST COMPLETE! XX SCH (09:10)
[2022-08-28] MEDS: INSULIN LISPRO (NovoLOG) PER UNIT SC SCH ×2 (12:00→17:11)
[2022-08-28] MEDS ORDERED: DEXTROSE 50% 50ML SYRINGE IV PRN (13:10)
[2022-08-28] MEDS ORDERED: GLUCAGON INJ 1MG VIAL SC PRN (13:10)
[2022-08-28] MEDS ORDERED: GLUCOSE 4GM CHEW TABLET PO PRN (13:10)
[2022-08-28] MEDS: ASPIRIN 81MG CHEW TABLET PO SCH (14:35)
[2022-08-28] MEDS: PANTOPRAZOLE 40MG TAB (PROTONIX) PO SCH (14:35)
[2022-08-28] MEDS: LEVOTHYROXINE 88MCG TABLET (0.088 MG) PO SCH (14:35)
[2022-08-28] MEDS: oxyBUTYnin 5 MG TAB PO PRN (17:10)
[2022-08-28] MEDS: ACETAMINOPHEN TAB 650MG DOSE (2X325MG) PO PRN (17:10)
[2022-08-28 18:20] LABS: HEMATOCRIT 28.3 % (42.0-52.0); MEAN CORPUSCULAR HEMOGLOBIN 28.2 pg (27.0-33.0); MEAN CORPUSCULAR HGB CONC 32.5 g/dl (32.0-36.5); MEAN CORPUSCULAR VOLUME 86.8 fl (80.0-96.0); PLATELET COUNT, AUTOMATED 325 10^3/uL (150-450); RED BLOOD COUNT 3.26 10^6/uL (4.30-6.10); WHITE BLOOD COUNT 8.7 10^3/uL (4.0-10.0)
[2022-08-28 18:46] LABS: HEMOGLOBIN 9.2 g/dl (13.5-17.5)
[2022-08-28 20:05] LABS: HEMOGLOBIN 8.8 g/dl (13.5-17.5); MEAN CORPUSCULAR HGB CONC 32.6 g/dl (32.0-36.5); PLATELET COUNT, AUTOMATED 321 10^3/uL (150-450); RED BLOOD COUNT 3.14 10^6/uL (4.30-6.10); WHITE BLOOD COUNT 7.9 10^3/uL (4.0-10.0)
[2022-08-28] MEDS: TAMSULOSIN 0.4 MG CAP PO SCH (21:22)
[2022-08-28] MEDS: ATORVASTATIN 20 MG TAB PO SCH (21:22)
[2022-08-29] VITALS (9 sets, daily range): BP systolic 110–133; BP diastolic 58–71
[2022-08-29] MEDS: ACETAMINOPHEN TAB 650MG DOSE (2X325MG) PO PRN ×2 (03:49→11:40)
[2022-08-29] MEDS: LEVOTHYROXINE 88MCG TABLET (0.088 MG) PO SCH (06:12)
[2022-08-29 07:15] LABS: BASO % 0.4 % (0.0-1.0); EOS # 0.2 10^3/uL (0.0-0.5); EOS % 1.5 % (0.0-3.0); HEMATOCRIT 28.4 % (42.0-52.0); HEMOGLOBIN 9.3 g/dl (13.5-17.5); LYMPH # 1.5 10^3/uL (1.5-5.0); LYMPH % 13.2 % (24.0-44.0); MEAN CORPUSCULAR HEMOGLOBIN 28.3 pg (27.0-33.0); MEAN CORPUSCULAR HGB CONC 32.7 g/dl (32.0-36.5); MEAN CORPUSCULAR VOLUME 86.3 fl (80.0-96.0); MONO # 1.1 10^3/uL (0.0-0.8); MONO % 9.8 % (2.0-8.0); NEUTROPHILS # 8.2 10^3/uL (1.5-8.5); NEUTROPHILS % 74.6 % (36.0-66.0); PLATELET COUNT, AUTOMATED 321 10^3/uL (150-450); RED BLOOD COUNT 3.29 10^6/uL (4.30-6.10)
[2022-08-29 07:42] LABS: BLOOD UREA NITROGEN 14 MG/DL (9-23); CALCIUM LEVEL 8.3 MG/DL (8.3-10.6); CARBON DIOXIDE LEVEL 25 MMOL/L (20-31); CHLORIDE LEVEL 106 MMOL/L (98-107); CREATININE FOR GFR 0.94 MG/DL (0.70-1.30); GLOMERULAR FILTRATION RATE > 60.0 (>42); GLUCOSE, FASTING 130 MG/DL (74-106); POTASSIUM SERUM 3.5 MMOL/L (3.5-5.1); SODIUM LEVEL 137 MMOL/L (136-145)
[2022-08-29] MEDS: INSULIN LISPRO (NovoLOG) PER UNIT SC SCH ×3 (08:17→18:02)
[2022-08-29] MEDS: oxyBUTYnin 5 MG TAB PO PRN (08:17)
[2022-08-29] MEDS: PANTOPRAZOLE 40MG TAB (PROTONIX) PO SCH (08:17)
[2022-08-29] MEDS: ASPIRIN 81MG CHEW TABLET PO SCH (08:18)
[2022-08-29] MEDS: ATORVASTATIN 20 MG TAB PO SCH (21:41)
[2022-08-29] MEDS: TAMSULOSIN 0.4 MG CAP PO SCH (21:41)
[2022-08-30] MEDS: LEVOTHYROXINE 88MCG TABLET (0.088 MG) PO SCH (05:53)
[2022-08-30 06:44] LABS: BASO # 0.1 10^3/uL (0.0-0.2); BASO % 0.5 % (0.0-1.0); EOS # 0.2 10^3/uL (0.0-0.5); EOS % 1.8 % (0.0-3.0); HEMATOCRIT 31.7 % (42.0-52.0); HEMOGLOBIN 10.4 g/dl (13.5-17.5); LYMPH # 1.6 10^3/uL (1.5-5.0); LYMPH % 12.9 % (24.0-44.0); MEAN CORPUSCULAR HEMOGLOBIN 28.3 pg (27.0-33.0); MEAN CORPUSCULAR HGB CONC 32.8 g/dl (32.0-36.5); MEAN CORPUSCULAR VOLUME 86.4 fl (80.0-96.0); MONO # 1.1 10^3/uL (0.0-0.8); MONO % 9.1 % (2.0-8.0); NEUTROPHILS # 9.4 10^3/uL (1.5-8.5); NEUTROPHILS % 75.2 % (36.0-66.0); PLATELET COUNT, AUTOMATED 326 10^3/uL (150-450); RED BLOOD COUNT 3.67 10^6/uL (4.30-6.10); WHITE BLOOD COUNT 12.5 10^3/uL (4.0-10.0)
[2022-08-30 06:45] VITALS: BP 110/68
[2022-08-30 07:08] LABS: BLOOD UREA NITROGEN 13 MG/DL (9-23); CARBON DIOXIDE LEVEL 25 MMOL/L (20-31); CHLORIDE LEVEL 105 MMOL/L (98-107); CREATININE FOR GFR 0.88 MG/DL (0.70-1.30); GLOMERULAR FILTRATION RATE > 60.0 (>42); GLUCOSE, FASTING 133 MG/DL (74-106); POTASSIUM SERUM 3.8 MMOL/L (3.5-5.1); SODIUM LEVEL 139 MMOL/L (136-145)
[2022-08-30] MEDS: ASPIRIN 81MG CHEW TABLET PO SCH (08:50)
[2022-08-30] MEDS: PANTOPRAZOLE 40MG TAB (PROTONIX) PO SCH (08:50)
[2022-08-30] MEDS: INSULIN LISPRO (NovoLOG) PER UNIT SC SCH ×3 (08:50→17:30)
[2022-08-30 14:00] VITALS: BP 131/73
== END 2022-08-30 17:47 | disposition home or self-care (01) | DRG 813 ==
LOC: EDBD 05:50 → M ED 05:50 → M ED INP 08:31 → ENRESERV 11:33 → CANRESERV 11:33 → ENRESERV 12:10 → M MSPAV 13:48
PROVIDERS: ADMIT Internal Medicine Nephrology; ATTEND Internal Medicine Nephrology
PROC: 30233N1 Transfusion of Nonautologous Red Blood Cells into Peripheral Vein, Percutaneous Approach (ICD-10-PCS; principal; 2022-08-28)
DX: D68.32 Hemorrhagic disorder due to extrinsic circulating anticoagulants (principal); D62 Acute posthemorrhagic anemia; E03.9 Hypothyroidism, unspecified; I10 Essential (primary) hypertension; E11.9 Type 2 diabetes mellitus without complications; E78.5 Hyperlipidemia, unspecified; K21.9 Gastro-esophageal reflux disease without esophagitis; I25.10 Atherosclerotic heart disease of native coronary artery without angina pectoris; R31.0 Gross hematuria; Z95.5 Presence of coronary angioplasty implant and graft; Z79.82 Long term (current) use of aspirin; Z79.899 Other long term (current) drug therapy

== ENCOUNTER 2022-10-30 10:12 | Emergency (ER) | payer OTHER ==
[~2022-10-30] VITALS: Ht 175.3 cm; Wt 70.9 kg
[2022-10-30 10:13] VITALS: TEMP 97.9
[2022-10-30 11:11] LABS: BASO % 0.4 % (0.0-1.0); EOS # 0.1 10^3/uL (0.0-0.5); EOS % 1.3 % (0.0-3.0); HEMATOCRIT 37.5 % (42.0-52.0); HEMOGLOBIN 11.5 g/dl (13.5-17.5); LYMPH # 1.3 10^3/uL (1.5-5.0); MEAN CORPUSCULAR HEMOGLOBIN 26.4 pg (27.0-33.0); MEAN CORPUSCULAR HGB CONC 30.7 g/dl (32.0-36.5); MEAN CORPUSCULAR VOLUME 86.2 fl (80.0-96.0); MONO % 9.3 % (2.0-8.0); NEUTROPHILS # 8.2 10^3/uL (1.5-8.5); NEUTROPHILS % 76.6 % (36.0-66.0); PLATELET COUNT, AUTOMATED 297 10^3/uL (150-450); RED BLOOD COUNT 4.35 10^6/uL (4.30-6.10); WHITE BLOOD COUNT 10.7 10^3/uL (4.0-10.0)
[2022-10-30 11:41] LABS: ALBUMIN 3.5 G/DL (3.2-5.2); ALKALINE PHOSPHATASE 379 U/L (46-116); ALT/SGPT 57 U/L (7.0-40); AMYLASE 53 U/L (30-118); AST/SGOT 57 U/L (<34); BILIRUBIN,DIRECT 0.3 MG/DL (<0.4); BILIRUBIN,TOTAL 0.7 MG/DL (0.3-1.2); BLOOD UREA NITROGEN 20 MG/DL (9-23); CALCIUM LEVEL 9.7 MG/DL (8.3-10.6); CARBON DIOXIDE LEVEL 26 MMOL/L (20-31); CHLORIDE LEVEL 108 MMOL/L (98-107); GLOMERULAR FILTRATION RATE > 60.0 (>42); GLUCOSE, FASTING 127 MG/DL (74-106); SODIUM LEVEL 140 MMOL/L (136-145); TOTAL PROTEIN 7.1 G/DL (5.7-8.2)
[2022-10-30] MEDS ORDERED: NS 1,000 ML IV ONE (12:10)
[2022-10-30] MEDS ORDERED: ISOVUE-370 76% 100ML VIAL As Ordered ONE (12:18)
[2022-10-30] MEDS ORDERED: AUGMENTIN 875 MG TAB PO ONE (13:50)
[2022-10-30] MEDS ORDERED: AMOX875T2 PO (13:51)
[2022-10-30 14:08] VITALS: BP 113/82; O2SAT 99
== END 2022-10-30 14:15 | disposition home or self-care (01) ==
LOC: M ED 10:12
DX: K57.30 Diverticulosis of large intestine without perforation or abscess without bleeding (principal); R74.01 Elevation of levels of liver transaminase levels; E11.9 Type 2 diabetes mellitus without complications; I25.2 Old myocardial infarction; E78.5 Hyperlipidemia, unspecified; K21.9 Gastro-esophageal reflux disease without esophagitis; N40.1 Benign prostatic hyperplasia with lower urinary tract symptoms; Z79.2 Long term (current) use of antibiotics; Z79.4 Long term (current) use of insulin; Z79.899 Other long term (current) drug therapy
CPT/HCPCS: 74177; 80048; 80076; 82150; 85025; 96360; 96361; 99283; Q9967

== ENCOUNTER 2024-08-24 09:04 | Observation (INO) | payer OTHER ==
[~2024-08-24] VITALS: Ht 175.3 cm; Wt 62.5 kg
[~2024-08-24 09:04] MED LIST changes: +AMOX875T2 PO; +CEFD1CAP9 PO; -CEFD300C41 PO; -FLOM0.4C39 PO; +LIFI1DRO4 OU; -MIRA1POW3 PO; +MIRA33506 PO; -OXYB5TAB10 PO; +OXYB5TAB14 PO; +TAMS-18 PO; -XIID5DRO OU
[2024-08-24 10:32] LABS: BASO % 0.5 % (0.0-1.0); EOS # 0.2 10^3/uL (0.0-0.5); EOS % 4.5 % (0.0-3.0); HEMATOCRIT 38.6 % (42.0-52.0); LYMPH # 1.4 10^3/uL (1.5-5.0); LYMPH % 35.9 % (24.0-44.0); MEAN CORPUSCULAR HEMOGLOBIN 29.3 pg (27.0-33.0); MEAN CORPUSCULAR HGB CONC 31.1 g/dl (32.0-36.5); MEAN CORPUSCULAR VOLUME 94.1 fl (80.0-96.0); MONO # 0.5 10^3/uL (0.0-0.8); MONO % 12.3 % (2.0-8.0); NEUTROPHILS # 1.8 10^3/uL (1.5-8.5); NEUTROPHILS % 46.5 % (36.0-66.0); PLATELET COUNT, AUTOMATED 192 10^3/uL (150-450); WHITE BLOOD COUNT 3.8 10^3/uL (4.0-10.0)
[2024-08-24 10:45] LABS: ALBUMIN 3.5 G/DL (3.2-5.2); ALKALINE PHOSPHATASE 108 U/L (40-129); ALT/SGPT 48 U/L (7.0-40); AST/SGOT 48 U/L (<34); BILIRUBIN,DIRECT 0.2 MG/DL (<0.4); BILIRUBIN,TOTAL 0.5 MG/DL (0.3-1.2); BLOOD UREA NITROGEN 31 MG/DL (9-23); CALCIUM LEVEL 9.3 MG/DL (8.3-10.6); CARBON DIOXIDE LEVEL 25 MMOL/L (20-31); CHLORIDE LEVEL 105 MMOL/L (98-107); CK-MB VALUE MASS < 1.0 NG/ML (<3.6); CPK CREATINE PHOSPHOKINASE 40 U/L (46-171); CREATININE FOR GFR 1.22 MG/DL (0.70-1.30); GLOMERULAR FILTRATION RATE 61.8 (>42); GLUCOSE, FASTING 101 MG/DL (74-106); POTASSIUM SERUM 4.3 MMOL/L (3.5-5.1); SODIUM LEVEL 138 MMOL/L (136-145); TOTAL PROTEIN 7.3 G/DL (5.7-8.2)
[2024-08-24 10:54] LABS: THYROID STIMULATING HORMONE 0.407 uIU/ML (0.55-4.78)
[2024-08-24] MEDS: NS 500 ML IV ONE (12:50)
[2024-08-24] MEDS: NS (Normal Saline) 0.9% 1,000 ML IV SCH (14:31)
[2024-08-24] MEDS ORDERED: GLUCOSE 4 GM CHEW PO PRN (15:10)
[2024-08-24] MEDS ORDERED: GLUCAGON INJ 1MG VIAL SC PRN (15:10)
[2024-08-24] MEDS ORDERED: DEXTROSE 50% 50ML SYRINGE IV PRN (15:10)
[2024-08-24] MEDS ORDERED: IPRATROPIUM 0.5MG/ALBUTEROL 2.5MG INH SOL UD 3ML NEB PRN (15:15)
[2024-08-24] MEDS ORDERED: ISOVUE-370 76% 100ML VIAL As Ordered ONE (15:17)
[2024-08-24 15:59] LABS: SOURCE PERIPHERAL SMEAR
[2024-08-24 16:00] LABS: IRON (FE) 29 UG/DL (65-175); PERCENT SATURATION 7.6 % (19.7-50.0); TOTAL IRON BINDING CAPACITY 381 UG/DL (250-425)
[2024-08-24 16:02] LABS: FERRITIN 11.1 NG/ML (10.5-307.3)
[2024-08-24] MEDS ORDERED: LISI10TA22 PO (16:10)
[2024-08-24] MEDS ORDERED: B-121TAB3 PO (16:10)
[2024-08-24] MEDS ORDERED: HOME MED LIST COMPLETE! XX SCH (16:10)
[2024-08-24] MEDS ORDERED: REST0.05 OS (16:10)
[2024-08-24] MEDS ORDERED: JARD1TAB3 PO (16:10)
[2024-08-24 16:11] LABS: HEPATITIS B SURFACE ANTIGEN NEGATIVE (NEGATIVE)
[2024-08-24 16:18] LABS: HEMOGLOBIN A1c 6.9 % (4.0-6.0)
[2024-08-24 16:31] LABS: HEPATITIS C VIRUS ABY INDEX 0.03 INDEX (<0.8)
[2024-08-24 16:32] LABS: HEPATITIS B CORE ANTIBODY IGM NEGATIVE (NEGATIVE)
[2024-08-24] MEDS: NS (Normal Saline) 0.9% 1,000 ML IV ONE (16:47)
[2024-08-24] MEDS: MONTELUKAST 10 MG TAB PO ONE (16:49)
[2024-08-24] MEDS: CETIRIZINE (ZyrTEC) 10 MG TAB PO ONE (16:49)
[2024-08-24] MEDS: guaiFENesin ER TABLET 600 MG TAB PO ONE (16:49)
[2024-08-24 16:52] LABS: CK-MB VALUE MASS < 1.0 NG/ML (<3.6)
[2024-08-24 16:54] LABS: CPK CREATINE PHOSPHOKINASE 35 U/L (46-171); MB/CK RELATIVE INDEX 2.85 (< OR =4)
[2024-08-24 16:55] VITALS: BP 135/74; TEMP 97.2; O2SAT 97
[2024-08-24] MEDS: INSULIN LISPRO (NovoLOG) PER UNIT SC SCH ×2 (17:20→21:00)
[2024-08-24] MEDS: IPRATROPIUM 0.5MG/ALBUTEROL 2.5MG INH SOL UD 3ML NEB SCH (19:07)
[2024-08-24 19:24] VITALS: BP 133/71; TEMP 97.7; O2SAT 97
[2024-08-24] MEDS: SENOKOT S TAB PO SCH (20:24)
[2024-08-24] MEDS: PANTOPRAZOLE 40MG TAB (PROTONIX) PO SCH (20:24)
[2024-08-24] MEDS: TAMSULOSIN 0.4 MG CAP PO SCH (20:24)
[2024-08-24] MEDS: LACTULOSE 20GM/30ML SYRUP UDC PO ONE (20:24)
[2024-08-24] MEDS: ATORVASTATIN 20 MG TAB PO SCH (20:24)
[2024-08-24] MEDS: FLUTICASONE PROP 0.05% NASAL SPRAY 16 GM (FLONASE) NARES SCH (21:00)
[2024-08-24 22:58] VITALS: BP 99/52; TEMP 97.5; O2SAT 98
[2024-08-25 04:33] VITALS: BP 102/55; TEMP 97.7; O2SAT 97
[2024-08-25] MEDS: LEVOTHYROXINE 88MCG TABLET (0.088 MG) PO SCH (05:13)
[2024-08-25 05:55] LABS: BASO % 0.5 % (0.0-1.0); EOS # 0.2 10^3/uL (0.0-0.5); EOS % 4.6 % (0.0-3.0); HEMATOCRIT 32.5 % (42.0-52.0); HEMOGLOBIN 10.2 g/dl (13.5-17.5); LYMPH # 1.6 10^3/uL (1.5-5.0); LYMPH % 38.7 % (24.0-44.0); MEAN CORPUSCULAR HEMOGLOBIN 29.4 pg (27.0-33.0); MEAN CORPUSCULAR HGB CONC 31.4 g/dl (32.0-36.5); MEAN CORPUSCULAR VOLUME 93.7 fl (80.0-96.0); MONO # 0.5 10^3/uL (0.0-0.8); NEUTROPHILS # 1.8 10^3/uL (1.5-8.5); PLATELET COUNT, AUTOMATED 163 10^3/uL (150-450); RED BLOOD COUNT 3.47 10^6/uL (4.30-6.10); WHITE BLOOD COUNT 4.2 10^3/uL (4.0-10.0)
[2024-08-25 06:06] LABS: CALCIUM LEVEL 8.4 MG/DL (8.3-10.6); CHOLESTEROL RISK RATIO 2.67 (<5); GLOMERULAR FILTRATION RATE 78.5 (>42); HDL CHOLESTEROL 31.8 MG/DL (>40); LDL CHOLESTEROL 39.8 MG/DL (<100); NON-HDL-C 53.2 MG/DL; POTASSIUM SERUM 3.8 MMOL/L (3.5-5.1); PREALBUMIN 8.5 MG/DL (10.0-40.0)
[2024-08-25 06:07] LABS: THYROXINE (T4) 5.4 UG/DL (4.5-10.9)
[2024-08-25 06:08] LABS: FOLLICLE STIMULATING HORMONE 3.6 mIU/ML (1.4-18.1); FREE THYROXINE INDEX 2.9 % (1.4-3.8); T UPTAKE 54.2 % (22.5-37.0); THYROID STIMULATING HORMONE 0.563 uIU/ML (0.55-4.78)
[2024-08-25 06:09] LABS: LUTEINIZING HORMONE 3.7 mIU/ML (3.1-34.6)
[2024-08-25] MEDS: IPRATROPIUM 0.5MG/ALBUTEROL 2.5MG INH SOL UD 3ML NEB SCH (07:36)
[2024-08-25] MEDS: NS (Normal Saline) 0.9% 1,000 ML IV ONE (07:42)
[2024-08-25] MEDS: MONTELUKAST 10 MG TAB PO SCH (08:48)
[2024-08-25] MEDS: ASPIRIN 81MG CHEW TABLET PO SCH (08:48)
[2024-08-25] MEDS: MIRALAX *UNIT DOSE* 17GM PACKET PO SCH (08:48)
[2024-08-25] MEDS: CYANOCOBALAMIN 500 MCG TAB PO SCH (08:49)
[2024-08-25] MEDS: CETIRIZINE (ZyrTEC) 10 MG TAB PO SCH (08:49)
[2024-08-25] MEDS: guaiFENesin ER TABLET 600 MG TAB PO SCH (08:49)
[2024-08-25 11:32] VITALS: BP 103/56; TEMP 97.7; O2SAT 100
[2024-08-25] MEDS: MIDODRINE 5 MG TAB PO SCH (16:55)
[2024-08-28 05:57] LABS: ADRENOCORTICOTROPHIC HORMONE 20 pg/mL (6-50)
[2024-08-28 13:17] LABS: ANA PATTERN Nuclear, Homogeneous (NEGATIVE); ANA SCREEN, IFA POSITIVE (NEGATIVE)
[2024-08-28 16:46] LABS: TSH RECEPTOR ASSAY < 1.00 IU/L (<=2.00)
[2024-08-29 13:22] LABS: LYME TOTAL ANTIBODY CIA <= 0.90 Index (<=0.90)
[2024-08-29 15:19] LABS: THYROID STIMULATING IMMUNOGLOB < 89 % baseline (<140)
== END 2024-08-25 17:44 | disposition home or self-care (01) ==
LOC: M ED 09:04 → M ED INP 09:05 → M MSPAV 16:34
PROVIDERS: ADMIT General Practice; ATTEND General Practice
DX: I95.1 Orthostatic hypotension (principal); E04.2 Nontoxic multinodular goiter; J12.2 Parainfluenza virus pneumonia; R63.4 Abnormal weight loss; R00.1 Bradycardia, unspecified; D64.89 Other specified anemias; R74.01 Elevation of levels of liver transaminase levels; I25.10 Atherosclerotic heart disease of native coronary artery without angina pectoris; I10 Essential (primary) hypertension; E03.9 Hypothyroidism, unspecified; E78.5 Hyperlipidemia, unspecified; K21.9 Gastro-esophageal reflux disease without esophagitis; E11.9 Type 2 diabetes mellitus without complications; I25.2 Old myocardial infarction; Z79.82 Long term (current) use of aspirin; Z79.899 Other long term (current) drug therapy
CPT/HCPCS: 36415; 71045; 71260; 74177; 76536; 80048; 80061; 80074; 80076; 80503; 82024; 82550; 82553; 82728; 83001; 83002; 83036; 83520; 83550; 83880; 84134; 84436; 84439; 84443; 84445; 84479; 84484; 85025; 85046; 86038; 86039; 86376; 86618; 87486; 87581; 87633; 87798; 93005; 94640; 96361; 96374; 96376; 97116; 97161; 99285; G0378; Q9967

== ENCOUNTER → 2024-12-12 | Outpatient (CLI) | payer MEDICARE, OTHER ==
[~2024-12-12] MED LIST changes: +B-121TAB3 PO; +JARD1TAB3 PO; +LISI10TA22 PO; +REST0.05 OS
[2024-12-12 11:45] LABS: CREATININE FOR GFR 1.17 MG/DL (0.70-1.30); GLOMERULAR FILTRATION RATE 64.6 (>42)
== END ==
LOC: M LAB 10:20
PROVIDERS: ATTEND Otolaryngology
DX: R22.1 Localized swelling, mass and lump, neck (principal)

== ENCOUNTER → 2024-12-17 | Outpatient (CLI) | payer MEDICARE, OTHER ==
[~2024-12-17] MED LIST changes: -ASPI-655 PO; +ASPI-737 PO; +ISOVUE-300 61% 100 ML VIAL As Ordered ONE
== END ==
LOC: M RAD 07:16
PROVIDERS: ATTEND Physician Assistant Medical
DX: R22.1 Localized swelling, mass and lump, neck (principal)
CPT/HCPCS: 70491; 82565; Q9967

== ENCOUNTER → 2025-02-12 | Outpatient (CLI) | payer OTHER ==
[~2025-02-12] MED LIST changes: -ISOVUE-300 61% 100 ML VIAL As Ordered ONE
== END ==
LOC: M RAD 01-21 10:57
PROVIDERS: ATTEND Family Medicine
DX: E07.9 Disorder of thyroid, unspecified (principal)
CPT/HCPCS: 78012; A9516